=== PATIENT | female | born 1930 | race Caucasian/White ===

== ENCOUNTER 2017-02-26 16:11 | Inpatient (IN) | payer OTHER ==
[~2017-02-26] VITALS: Ht 147.3 cm; Wt 66.9 kg
[2017-02-26] VITALS (7 sets, daily range): BP systolic 71–120; BP diastolic 41–72
--- NOTE | ~2017-02-26 | HC ---
[facility] [place] [address] CONSULTATION Name: MATT STARR Room #: 453-P ADM IN M.R.#: [id number] Admission: 02/26/17 Attend Phys: Cal Scott MD Discharge: Date of : [birth year] Report #: [id number] THIS REPORT FOR: //name// CC: Cal Scott MD DATE OF SERVICE: 02/26/2017 REFERRING PROVIDER: Cal Scott MD REASON FOR CONSULTATION: Critical care assistance with sepsis. CHIEF COMPLAINT: Weakness. HISTORY OF PRESENT ILLNESS: Our group was asked to see the patient in consultation this evening by Dr. Cal Scott. A pleasant 86-year-old woman who had just recently moved to a different assisted living and was found today to be extremely weak and had some blood in the stool of unclear etiology. Because of patient's weakness, she was brought to our Emergency Department and was found to have significant pyuria as well as hypotension, was consistent with urosepsis and subsequently admitted for further management. Chest radiograph had suggested possible right lower lobe infiltrate as well. The patient denies any chest pain or cough or shortness of breath at this time. No significant pulmonary history. Denies any hematochezia. By report rectal exam in the Emergency Department by Emergency Room physician was negative for blood, currently is resting comfortably and somewhat somnolent. Of note, the patient does have a history of sleep apnea, noncompliant with BiPAP. ALLERGIES: INCLUDE SULFA and . PAST MEDICAL HISTORY: 1. Type 2 diabetes mellitus. 2. Hypertension. 3. Gout. 4. History of obstructive sleep apnea. 5. History of spinal stenosis. 6. Chronic venous insufficiency in the lower extremities. 7. Prior CVA. 8. Coronary artery disease. 9. Osteoarthritis. 10. Chronic pain. 11. History of subdural hematoma. CURRENT MEDICATIONS: [facility] [address] [place] [address] CONSULTATION Name: MATT STARR Room #: 453-P [facility] IN [facility].#: [id number] Admission: 02/26/17 Attend Phys: Cal Scott MD Discharge: Date of : [birth year] Report #: [id number] 1. Hydrocodone p.r.n. 2. Bicarbonate drip. 3. CT scan protocol. 4. Norepinephrine. 4. Azithromycin. 5. Ceftriaxone. HOME MEDICATIONS: 1. Allopurinol. 2. Aspirin. 3. Atorvastatin. 4. Carvedilol. 5. Colace. 6. Potassium. 7. Torsemide. 8. Celebrex. SOCIAL HISTORY: The patient is currently living in what sounds like an assisted living environment. 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 FAMILY HISTORY: Noncontributory due to advanced age. REVIEW OF SYSTEMS: CONSTITUTIONAL: Denies any fevers, chills or sweats. ENT: No upper respiratory congestion or rhinorrhea. CARDIOVASCULAR: No chest pains or palpitations. GASTROINTESTINAL: No nausea, vomiting, diarrhea, constipation or abdominal pain. GENITOURINARY: No dysuria, urinary frequency; possible hematuria. INTEGUMENT: Denies any rash. MUSCULOSKELETAL: Chronic osteoarthritic pain and diffuse pains. NEUROLOGIC: History of prior CVA and some generalized weakness and frequent falls. PHYSICAL EXAMINATION: VITAL SIGNS: Afebrile, pulse 60s, respiratory rate 16, blood pressure 107/45, oxygen saturation 93% on 2 liters. GENERAL: This is an elderly woman, does not appear in any distress, pleasant. HEENT: Clear oropharynx, Mallampati 2 airway. NECK: Supple, no lymphadenopathy, no thyromegaly, no stridor. LUNGS: Clear anteriorly. HEART: Regular. No murmurs appreciated. ABDOMEN: Soft, nontender, no masses. BACK: Reveals no CVA tenderness or flank pain. EXTREMITIES: Revealed no significant edema. Pulses are 2+ and warm throughout. [facility] [address] [place] [address] CONSULTATION Name: MATT STARR Room #: 453-P [facility] IN [facility]#: [id number] Admission: 02/26/17 Attend Phys: Cal Scott MD Discharge: Date of : [birth year] Report #: [id number] Extremities are warm throughout. LABORATORY DATA: Urinalysis reveals greater than 25 white blood cells per high power field, no significant hematuria noted. CBC revealed a white blood cell count of 13.5, hemoglobin 10, hematocrit 32, platelet count of 259. Sodium is 144, potassium 4.9, chloride 107, bicarbonate 26, BUN 26, creatinine 1.6, glucose 109. Chest x-ray reveals mild right basilar atelectasis. No significant infiltrates or effusions appreciated. IMPRESSION: 1. Sepsis syndrome, likely due to urosepsis. 2. Blood loss noted at current facility in which she is living, likely hematuria. 3. Probable cystitis. 4. Possible right lower lobe infiltrate/pneumonia. SUGGESTIONS: 1. ICU care. 2. Sepsis management having difficulty getting central venous catheter. We will have to do sepsis management as best we can. The patient appears to have fluid challenge, now on Levophed. Would continue this and follow laboratories. 3. Rocephin and azithromycin. 4. Await cultures, blood and urine. 5. Followup laboratories. 6. Trend lactates. 7. Additional recommendations to follow. Thank you for requesting our suggestions. Total critical care time 40 minutes, not including procedures, discussed with Dr. Scott. By: [id number] Ko Sue MD /nt
--- NOTE | ~2017-02-26 | HC ---
[facility] [place] [address] CONSULTATION Name: MATT STARR Room #: 453-P [facility] IN .R.#: [id number] Admission: 02/26/17 Attend Phys: Cal Scott MD Discharge: Date of : [birth year] Report #: [id number] THIS REPORT FOR: //name// CC: Cal Scott DATE OF SERVICE: 02/28/2017 HISTORY OF PRESENT ILLNESS: The patient is an 86-year-old white female, recently moved into a new assisted living facility had a couple of falls and they noted blood in her toilet water. She was admitted to [facility], noted to be hypotensive. She was diagnosed with septic shock with cystitis. She has a right basilar infiltrate. She was initially treated in the intensive care unit. She has been treated with IV antibiotics and fluids and has been transferred to the medical miramontes. She has chronic right shoulder, hip and knee pain and has had a recent epidurals at [facility]. She also has chronic hypoxia with COPD. Her volume depletion has improved. Creatinine has decreased. We are seeing her now in rehabilitation medicine consultation. PAST MEDICAL HISTORY: Includes the chronic pain disorder which has increased this spring. She has been followed with a Pain Service and has had recent epidural injections as noted. She does have a premorbid sacral pressure ulcer, stage 2. PAST SURGICAL HISTORY: 1. Includes 2 right knee replacements and 1 right hip replacement. 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 She does have severe obstructive sleep apnea, but chronically refuses her BiPAP. She has chronic hypoxemia from COPD; history of diabetes mellitus, type 2; chronic lower extremity swelling, progressive spinal kyphosis. She has history of hyperlipidemia, diabetic neuropathy, B12 deficiency, hypertension, retropulsive tendency when up. MEDICATIONS: Please see the full medication listing. ALLERGIES: Include SULFA and PORK, anabaptism preference. FAMILY HISTORY: Noncontributory. MEDICATIONS: Please see the full medication listing. SOCIAL HISTORY: As noted above, lives in an assisted living facility, did receive some assistance with basic ADLs. She utilized a front-wheeled walker. There are no steps. REVIEW OF SYSTEMS: She has the chronic right-sided back pain. She does not [address] [address] CONSULTATION Name: MATT STARR Room #: 453-P [facility] IN [facility].#: [id number] Admission: 02/26/17 Attend Phys: Cal Scott MD Discharge: Date of : [birth year] Report #: [id number] like lying on her side because of the increased pain, although we are utilizing at least a pillow to try to keep her off her sacral area. A was being utilized in the ICU. No current complaints of chest pain, shortness of breath or abdominal discomfort. Did not offer any complaints of headache or neurologic changes. Notes frustration with her current condition. PHYSICAL EXAMINATION: GENERAL: An 86-year-old white female in no obvious distress. VITAL SIGNS: Last recorded temperature 98.6, pulse 93, respirations 18, blood pressure 141/62. NEUROLOGIC: She is alert, pleasant, follows basic commands. Facies are symmetric. EXTREMITIES: She has functional range of motion of both upper extremities. Strength is grade 4-/5-3+/5. DTRs are trace to 1. Lower extremities, she has some venous stasis changes. She does have 1+ pitting edema. Strength is probably a grade 3+/5 to 4-/5. DTRs are decreased. She has the grade 2 sacral pressure ulcer. She is lying partial on her left side. Functionally, she is min assist with sit to stand and is ambulating 20 feet min assist with a front-wheeled walker. IMPRESSION: An 86-year-old white female with the following problem list: 1. Medical complexity with generalized debilitation. 2. Septic shock. 3. Cystitis. 4. Right basilar infiltrate. 5. Sacral pressure ulcer, stage 2. 6. Right shoulder, hip, and knee pain and has had prior epidurals at [facility]. 7. Severe obstructive sleep apnea, but does not like her BiPAP. 8. Chronic obstructive pulmonary disease. 9. Acute renal insufficiency, superimposed on chronic kidney disease. PLAN: Occupational therapy has actually discharged her from therapy as they have indicated that she is at her baseline for ADLs and that she had assistance at the assisted living facility. She has been ambulating a short distance with the front-wheeled walker. She needs min assist for sit to stand. Case management involved and will need to be in contact with the assisted living facility to see what her premorbid functional was prior to admission. Depending upon this insurance, we will need to be checked regarding rehab therapy options. At this point, we will continue to follow while she continues here at [facility]. By: [id number] Juan M Herrera MD /nt
--- NOTE | ~2017-02-26 | H ---
[facility] [place] [address] HISTORY AND PHYSICAL Name: MATT STARR Room #: 453-P ADM IN M.R.#: [id number] Admission: 02/26/17 Attend Phys: Cal Scott MD Discharge: Date of : [birth year] Report #: [id number] THIS REPORT FOR: //name// CC: Cal Scott DATE OF SERVICE: 02/26/2017 CHIEF COMPLAINT: Weakness, shock, sepsis, acute kidney injury/volume depletion. HISTORY OF PRESENT ILLNESS: This is one of many [facility] admissions for this 86-year-old white female who is in her usual state of health and moved to a brand new residential facility on February 23, at the end of last week. She is pleased with this brand new facility and says "they are following over each other, trying to do whatever you ask of them." She denies a specific change in her medical condition, other than she was feeling more tired and weak. She has spent quite sometime back in her previous independent living apartment and then unpacking her new one. This morning, she fell twice in her new apartment, which she attributes to generalized fatigue. The staff cleaning her apartment noted that there was quite a bit of blood in the toilet water and together with her complaints of weakness, the paramedics were called. The paramedics recorded up blood pressure with the systolic of 70 and brought here to the hospital. Here in the hospital, her blood pressure was 71/33, for the first several hours despite getting IV fluids. Her heart rate was 68, although she felt weak, she did not have confusion or evidence of body organ hypoperfusion. Her white count was elevated at 13,500 and her urinalysis was abnormal with bacteria, white blood cell clumps, blood and nitrites positive. Together with her generalized weakness, these findings all indicated ICU admission for intravenous fluid resuscitation, IV vasp[ressors, as well as IV antibiotics. PAST MEDICAL HISTORY: Most recently significant for chronic pain. She has had 2 right knee replacements and one right hip replacement. There was a fall on her right side at sometime in the distant past. Recently she reports her entire right side is having pain, and is being followed at the [facility] for pain management service where she has also recieved two epidural injections. Her most recent epidural had been on Sunday, 02/12, an epidural injection of the low back. She also has pain in her right shoulder and right hip as well as her right knee. She has fallen and hit her head several times, and did experience a subdural hematoma several years ago. Soon after that, she developed a grand mal seizure, which is controlled on her levetiracetam since then without recurrent seizures. [facility] [address] [place] [address] HISTORY AND PHYSICAL Name: MATT STARR Room #: 453-P [facility] IN M.R.#: [id number] Admission: 02/26/17 Attend Phys: Cal Scott MD Discharge: Date of : [birth year] Report #: [id number] She has a severe obstructive sleep apnea and chronically refuses to use her BiPAP machine. She has had several hospitalizations over the last 5 years that were caused because of problems emanating from her untreated severe sleep apnea, after which she continued to use her CPAP machine once getting home and mental acuity problems cleared after weeks or months clearing out the CO2 accumulation. She has chronic hypoxemia from her COPD, hypertension, type 2 diabetes and chronic swelling in her lower legs treated with elevation as well as chronic diuretics. She was admitted on 06/08/2016 for several days because of difficulty swallowing after having had a large fluid bolus stuck throughout her esophagus. She was found to have grade C esophagitis as well as a benign appearing esophageal stricture, hiatal hernia, gastritis and duodenitis. There was a suggestion of gastroparesis. Her trachea is positioned in such a fashion that makes intubation and airway control very difficult, it is due to her severe cervical arthritis. She has mild chronic kidney disease stage 3 that has been stable, multifactorial edema of her lower extremities, chronic with redness of both lower calf muscle areas. She takes torsemide 20 mg 2-3 tablets daily to control her and maintain her edema at reasonable levels. She did have syncopal episode on 08/18/2015 that manifested with a toxic encephalopathy from CO2 narcosis from her untreated severe sleep apnea. She required a ventilator for several days. She has a progressive spinal kyphosis and please see Dr. Hernandez's dictated note regarding her tracheal intubation 04/17/2015, detailing a successful approach and the challenges from the position change. She has noninsulin dependent diabetes mellitus that is very easy to manage. She had a stroke in recent intracranial hemorrhage from closed head injury. She has history of coronary artery disease and diffuse osteoarthritis. She has history of spinal stenosis, and COPD requiring oxygen supplementation. She has history of hyperlipidemia, diabetic neuropathy, B12 deficiency, ORIF of the left humerus fracture after a fall in February 2013, hypertension, she frequently falls backwards. CURRENT MEDICATIONS: Potassium chloride 10 mEq daily, torsemide 20 mg 2 in the morning, 1 in the evening, pantoprazole 40 mg twice daily, allopurinol, one 300 mg tablet daily, amlodipine 5 mg daily, levetiracetam 500 mg tablets, one half tablet in the morning and one-half in the evening, aspirin 81 mg daily, iron 65 mg daily, stool softener 100 mg, vitamin D, vitamin C and Celebrex 200 mg once daily. [facility] [address] [place] [address] HISTORY AND PHYSICAL Name: MATT STARR Room #: 453-P [facility] IN [facility]#: [id number] Admission: 02/26/17 Attend Phys: Cal Scott MD Discharge: Date of : [birth year] Report #: [id number] SOCIAL HISTORY: She does not drink nor smoke. She recently requested a note "no CPR" from the assisted living facility staff. REVIEW OF SYSTEMS: Unremarkable. HEENT: Unremarkable. The oropharynx shows a small somewhat posterior denture. PHYSICAL EXAMINATION: GENERAL: She is awake, alert and oriented. The oropharynx is unremarkable. She is markedly generalized weak. LUNGS: Clear to auscultation and percussion. CARDIOVASCULAR: Heart tones are normal in rate and rhythm. ABDOMEN: Soft and nontender, without hepatosplenomegaly or masses. She is obese. EXTREMITIES: There is no clubbing or cyanosis. The edema up to the mid upper calf is much less than usual. The chronic redness is present and the skin of her legs and feet is intact. ASSESSMENT: 1. Septic shock. 2. Urinalysis suggests urinary tract infection and possibly a pyelonephritis. 3. HORTENCIA/volume depletion related to increased activity, less water intake, and continuing her torsemide. 4. Seizure disorder. 5. Chronic pain that became more difficult this spring. 6. Sacral decubitus from inactivity. 7. Right basilar pulmonary infiltrate/effusion. She is being seen by Dr. Ko Sue of Critical Care. ICU with vasopressors and ABX for urine and pneumonia. By: [id number] 0150 Cal Scott MD /nt
--- NOTE | ~2017-02-26 | EKG ---
[address] [address] ELECTROCARDIOGRAM REPORT Name: MATT STARR Room #: 453-P ADM IN M.R.#: [id number] Admission: 02/26/17 Attend Phys: Cal Scott MD Discharge: Date of : [birth year] Report #: [id number] THIS REPORT FOR: //name// [facility] ED Test Date: 2017-02-26 Test Time: 16:29:31 Pat Name: MATT STARR Department: Room: [facility] Gender: F Senior Gis Analyst: kerry : 1930 Requested By: Rickie Blanchard Order Number: [id number] MD: Narayan Gibbs Measurements Intervals [place] Rate: 64 P: -1 CA: 180 QRS: -7 QRSD: 88 T: 23 QT: 421 QTc: 435 Interpretive Statements Sinus rhythm Abnormal R-wave progression, late transition LVH by voltage Compared to ECG 06/07/2016 11:46:17 Sinus tachycardia no longer present Electronically Signed On 02-28-2017 9:46:51 CDT by Narayan Gibbs [email or web address] <ELECTRONICALLY SIGNED> By: Narayan Gibbs MD 02/28/17 0946 1629 1629 Narayan Gibbs MD /EPI
[~2017-02-26 16:11] MED LIST: ALBUTEROL2.5 MG/0.5 INH; ALLOPURINOL 10100 M1; ALLOPURINOL 30300 M2 PO; AMLODIPINE BESYL5 M1 PO; AMLODIPINE BESYL5 MG PO; ASPIR 8181 MG PO; ASPIRIN EC81 M1 PO; ATORVASTATIN CA40 MG PO; B-121000 MCG PO; B-12500 MCG PO; CARVEDILOL12.5 MG PO; CIPRO250 M1 PO; CIPROFLOXACIN500 M1 PO; CLONIDINE HCL0.3 M2 PO; COLACE100 MG PO; DEMADEX20 MG PO; DIGOXIN125 MCG PO; DUONEB 2.5-0.5 M3 ML; ENOXAPARIN40 MG/0.1 SUBQ; FISH OIL 1,0001 EAC5 PO; GLIPIZIDE ER2.5 MG PO; GLUCOTROL XL2.5 MG PO; GLUCOTROL5 MG PO; HYDROCODON-ACE1 EAC7 PO; IPRAT-ALBUT 0.5-3 ML INH; IRON325 PO; KEPPRA 500 MG500 M1 PO; KLOR-CON 10 ER10 MEQ PO; KLOR-CON 1010 MEQ PO; LANOXIN 0.120.125 M2 PO; LASIX 40 MG TAB40 M1 PO; LORTAB; MOBIC7.5 M1 PO; MOBIC7.5 MG PO; MULTIVITAMINS PO; NEURONTIN 300300 M1 PO; NEURONTIN600 MG PO; NORVASC5 MG PO; PEG3350510 GM PO; PLAVIX 75 MG TA75 M1 PO; PLAVIX 75 MG TA75 MG PO; PRAVACHOL80 MG PO; PREDNISONE 10 M10 MG PO; PROVIGIL 100 M100 MG PO; SIMVASTATIN80 MG PO; SOLU-MEDRO40 MG/1 M2 IV; TYLENOL325 MG PO; UNICOMPLEX M TA1 TA1 PO; VITAMIN D 5050000 I1 PO; VITAMIN D35000 UNIT PO; VITAMIN D350000 UNIT PO; VITAMINC500 PO; ZINC CHELATE50 MG PO
[2017-02-26 16:58] LABS: URINE BILIRUBIN NEGATIVE (Negative); URINE BLOOD TRACE (Negative); URINE COLOR YELLOW; URINE GLUCOSE-RANDOM* NEGATIVE (Negative); URINE KETONES NEGATIVE (Negative); URINE LEUKOCYTES-REFLEX 2+ (Negative); URINE PROTEIN (DIPSTICK) 1+ (Negative); URINE UROBILINOGEN 0.2 E.U./dl (0.2-1.0)
[2017-02-26 17:10] LABS: SQUAMOUS 0-3 Few /LPF (0-3); URINE WBC-REFLEX >25 Many /HPF (0-5)
[2017-02-26 17:11] LABS: CRYSTALS None Seen /LPF (None Seen); URINE RBC 0-2 Rare /HPF (0-2); WBC CLUMPS Moderate (None Seen)
[2017-02-26 17:12] LABS: CASTS None Seen /LPF (None Seen)
[2017-02-26 17:13] LABS: PROTIME 10.7 Seconds (9.3-11.4)
[2017-02-26 18:46] LABS: ABSOLUTE NEUTROPHILS 10.9 thou/uL (1.4-8.2); BASOPHILS 0.2 % (0.0-2.0); EOSINOPHILS 0.4 % (0.0-3.0); HEMATOCRIT 31.9 % (37.0-47.0); HEMOGLOBIN 10.3 gm/dL (12.0-15.0); LYMPHOCYTES 10.6 % (24.0-44.0); MCH 30.1 pg (26.0-34.0); MCHC 32.3 g/dL (28.0-37.0); MCV 93.1 fL (80.0-100.0); MONOCYTES 8.4 % (1.0-8.0); PLATELET COUNT 259 thou/uL (150-400); POLYS 80.4 % (36.0-66.0); RBC 3.43 mil/uL (4.20-5.00); RDW 16.5 % (10.5-14.5); WBC 13.5 thou/uL (4.0-11.0)
[2017-02-26 18:47] LABS: MANUAL DIFF NO
[2017-02-26 18:50] LABS: CALCIUM 9.4 mg/dL (8.5-10.1); CREATININE 1.6 mg/dL (0.6-1.0); POTASSIUM 4.9 mmol/L (3.5-5.1)
[2017-02-26] MEDS ORDERED: AMLODIPINE BESYL5 M1 (21:52)
[2017-02-26] MEDS ORDERED: KEPPRA 500 MG500 M1 PO (21:56)
[2017-02-26] MEDS ORDERED: MOBIC7.5 MG (21:57)
[2017-02-26] MEDS ORDERED: CYMBALTA30 MG (21:59)
[2017-02-26] MEDS ORDERED: TORSEMIDE20 MG (22:02)
[2017-02-26] MEDS ORDERED: IRON325 PO (22:05)
[2017-02-26] MEDS ORDERED: TRAMADOL 50 MG50 MG (22:10)
[2017-02-26] MEDS ORDERED: PROTONIX40 M1 PO (22:12)
[2017-02-26] MEDS ORDERED: HYDROCODON-ACE1 EAC7 (22:13)
[2017-02-26] MEDS ORDERED: LIDOCAINE-PRIL1 EACH (22:15)
[2017-02-27] VITALS (20 sets, daily range): BP systolic 89–138; BP diastolic 47–80
[2017-02-27 05:26] LABS: ABSOLUTE NEUTROPHILS 10.6 thou/uL (1.4-8.2); BASOPHILS 0.2 % (0.0-2.0); EOSINOPHILS 0.8 % (0.0-3.0); HEMATOCRIT 31.1 % (37.0-47.0); LYMPHOCYTES 10.8 % (24.0-44.0); MCH 30.5 pg (26.0-34.0); MCHC 32.2 g/dL (28.0-37.0); MCV 94.6 fL (80.0-100.0); MONOCYTES 8.7 % (1.0-8.0); PLATELET COUNT 227 thou/uL (150-400); POLYS 79.5 % (36.0-66.0); RBC 3.29 mil/uL (4.20-5.00); RDW 17.1 % (10.5-14.5); WBC 13.3 thou/uL (4.0-11.0)
[2017-02-27 05:42] LABS: ALBUMIN 2.3 g/dL (3.4-5.0); CALCIUM 8.7 mg/dL (8.5-10.1); CREATININE 1.1 mg/dL (0.6-1.0); POTASSIUM 4.4 mmol/L (3.5-5.1); TOTAL BILIRUBIN 0.3 mg/dL (<0.1-1.0); TOTAL PROTEIN 5.9 g/dL (6.4-8.2)
[2017-02-27 05:44] LABS: MANUAL DIFF NO
[2017-02-28 04:36] VITALS: BP 110/62
[2017-02-28 07:29] VITALS: BP 126/54
[2017-02-28 08:51] LABS: HEMATOCRIT 30.4 % (37.0-47.0); HEMOGLOBIN 9.9 gm/dL (12.0-15.0); MCH 30.7 pg (26.0-34.0); MCHC 32.7 g/dL (28.0-37.0); RBC 3.24 mil/uL (4.20-5.00); RDW 16.7 % (10.5-14.5); WBC 10.1 thou/uL (4.0-11.0)
[2017-02-28 08:57] LABS: CALCIUM 8.9 mg/dL (8.5-10.1); POTASSIUM 4.5 mmol/L (3.5-5.1)
[2017-02-28 11:09] VITALS: BP 128/57
[2017-02-28 14:58] VITALS: BP 141/62
[2017-02-28 19:38] VITALS: BP 156/84
[2017-03-01 03:38] VITALS: BP 156/67
[2017-03-01 08:36] VITALS: BP 141/90
[2017-03-01 12:33] VITALS: BP 138/61
[2017-03-01 16:00] VITALS: BP 140/72
[2017-03-01 19:47] VITALS: BP 155/78
[2017-03-02 03:45] VITALS: BP 152/78
[2017-03-02 06:18] LABS: HEMATOCRIT 30.7 % (37.0-47.0); HEMOGLOBIN 10.1 gm/dL (12.0-15.0); MCH 30.9 pg (26.0-34.0); MCV 93.5 fL (80.0-100.0); RBC 3.29 mil/uL (4.20-5.00); RDW 16.8 % (10.5-14.5)
[2017-03-02 06:26] LABS: ALBUMIN 2.5 g/dL (3.4-5.0); CALCIUM 9.4 mg/dL (8.5-10.1); CREATININE 0.9 mg/dL (0.6-1.0); POTASSIUM 4.2 mmol/L (3.5-5.1); TOTAL BILIRUBIN 0.3 mg/dL (<0.1-1.0); TOTAL PROTEIN 5.9 g/dL (6.4-8.2); URIC ACID* 2.7 mg/dL (2.6-7.2)
[2017-03-02 07:23] VITALS: BP 160/79
[2017-03-02 12:02] VITALS: BP 136/65
[2017-03-02] MEDS ORDERED: PERCOCET PO (13:31)
[2017-03-02] MEDS ORDERED: OXYGEN MISCELL (13:37)
[2017-03-02] MEDS ORDERED: CEFTRIAXON1 GM/50 ML IV (13:37)
[2017-03-02] MEDS ORDERED: DEMADEX20 MG PO (13:37)
[2017-03-02 15:49] VITALS: BP 166/82
[2017-03-02] MEDS ORDERED: NF TOP (16:20)
[2017-03-02] MEDS ORDERED: CELEBREX 200 M200 M1 PO (16:20)
[2017-03-02 20:37] VITALS: BP 160/59
[2017-03-03] VITALS: BP 143/79
[2017-03-03 04:40] VITALS: BP 150/76
[2017-03-03 07:44] VITALS: BP 121/54
[2017-03-03] MEDS ORDERED: ATORVASTATIN CA40 MG PO (10:47)
[2017-03-03 11:32] VITALS: BP 121/54
[2017-03-03 11:49] VITALS: BP 153/88
== END 2017-03-03 15:11 | DRG 871 ==
LOC: ER 16:11 → 4W 18:01 → ICU 18:01 → EROBS 18:01 → ICU 19:27 → 4W 02-27 19:59
PROVIDERS: Emergency Medicine; Internal Medicine
PROC: 02HV33Z Insertion of Infusion Device into Superior Vena Cava, Percutaneous Approach (ICD-10-PCS; principal; 2017-02-26)
PROC: 02PYX3Z Removal of Infusion Device from Great Vessel, External Approach (ICD-10-PCS; 2017-03-03)
DX: A41.9 Sepsis, unspecified organism (principal); J18.9 Pneumonia, unspecified organism; R65.21 Severe sepsis with septic shock; J96.21 Acute and chronic respiratory failure with hypoxia; N17.9 Acute kidney failure, unspecified; L89.152 Pressure ulcer of sacral region, stage 2; I25.10 Atherosclerotic heart disease of native coronary artery without angina pectoris; M10.9 Gout, unspecified; J44.9 Chronic obstructive pulmonary disease, unspecified; E78.5 Hyperlipidemia, unspecified; E11.40 Type 2 diabetes mellitus with diabetic neuropathy, unspecified; Z96.651 Presence of right artificial knee joint; E53.8 Deficiency of other specified B group vitamins; G89.29 Other chronic pain; Z96.641 Presence of right artificial hip joint; G47.33 Obstructive sleep apnea (adult) (pediatric); R53.81 Other malaise; E11.22 Type 2 diabetes mellitus with diabetic chronic kidney disease; N18.9 Chronic kidney disease, unspecified; I12.9 Hypertensive chronic kidney disease with stage 1 through stage 4 chronic kidney disease, or unspecified chronic kidney disease; G40.909 Epilepsy, unspecified, not intractable, without status epilepticus; N30.90 Cystitis, unspecified without hematuria; E86.9 Volume depletion, unspecified; Z87.81 Personal history of (healed) traumatic fracture; Z88.2 Allergy status to sulfonamides; Z86.73 Personal history of transient ischemic attack (TIA), and cerebral infarction without residual deficits; Z91.018 Allergy to other foods; Z91.19 Patient's noncompliance with other medical treatment and regimen; B96.20 Unspecified Escherichia coli [E. coli] as the cause of diseases classified elsewhere
CPT/HCPCS: 10045; 10078; 27000

== ENCOUNTER 2017-03-17 11:15 | Inpatient (IN) | payer OTHER ==
[~2017-03-17] VITALS: Ht 139.7 cm; Wt 63.6 kg
--- NOTE | ~2017-03-17 | HC ---
[facility] [place] [address] CONSULTATION Name: MATT STARR Cam Room #: 446-P ADM IN M.R.#: [id number] Admission: 03/17/17 Attend Phys: Cal Scott MD Discharge: Date of : [birth year] Report #: [id number] THIS REPORT FOR: //name// CC: Cal Scott DATE OF SERVICE: 03/20/2017 HISTORY OF PRESENT ILLNESS: The patient is an 86-year-old white female previously known to me who had recently removed into an assisted living facility at the beginning of this month. She had an episode of septic shock with cystitis and right basilar infiltrate as well as the development of sacral pressure ulcer stage 2 during a prior acute hospitalization from 02/26/2017 through 03/03/2017 at [facility]. She was discharged to a nursing home facility for a short period of time. She apparently did not feel the care was very good at the nursing home facility and she was discharged back to her own assisted living facility. After admission to her assisted living facility, she initially was doing pretty well, but then she had worsening pain involving her right side, especially lower extremities and was having more and more problems with functional mobility. She was brought back in to [facility] and was diagnosed with bilateral lower extremity cellulitis. She has the sacral ulcer as well. She has been placed on IV antibiotics. She had leukocytosis with improvement. She notes her pain is improved now with treating the cellulitis. She is desiring to get more therapy to try to achieve a higher functional level for when she returns back to her assisted living facility. Her Celebrex has also been increased and she has tramadol and Lidoderm. PAST MEDICAL HISTORY: Includes a chronic pain disorder premorbidly. She has been followed with the Pain Center and has had prior epidural steroid injections. PAST SURGICAL HISTORY: Includes 2 right total knee replacements and 1 right hip replacement. She has had a prior subdural hematoma and developed grand mal seizures and has been on anti-seizure medication. She has a history of severe obstructive sleep apnea but chronically refuses her BiPAP. She has chronic hypoxemia from COPD and indicates she has been on O2 at home 2 L. History of diabetes mellitus type 2, chronic lower extremity swelling, progressive spinal kyphosis. She has a history of hyperlipidemia, diabetic neuropathy, B12 deficiency, hypertension. MEDICATIONS: Please see the full medication listing. ALLERGIES: Include SULFA and PORK, scientologist preference. FAMILY HISTORY: Noncontributory. [facility] [address] [place] [address] CONSULTATION Name: MATT STARR Room #: 446-P [facility] IN [facility]#: [id number] Admission: 03/17/17 Attend Phys: Cal Scott MD Discharge: Date of : [birth year] Report #: [id number] SOCIAL HISTORY: Lives in the assisted living facility. Did receive some assistance with basic ADLs. She utilized a front-wheeled walker. There are no steps. She was able to ambulate down to the dining area. REVIEW OF SYSTEMS: She notes the right-sided back pain is improving. The leg pain is improving. Did not offer any current complaints of chest pain, shortness of breath or abdominal discomfort. PHYSICAL EXAMINATION: She is an 86-year-old white female in no obvious distress. Last recorded temperature is 97.5, pulse 67, respirations 18, blood pressure is 135/58. The patient is alert, pleasant. HEENT appeared to be benign. Cranial nerves are grossly intact. Facies are symmetric. She is a good historian. She has functional range of motion of both upper extremities, strength is grade 4-/5. DTRs are trace to 1. In her lower extremities, she has some residual erythema over her lower extremities distally. There might be some early venous stasis changes. She was able to tolerate lower extremity strength testing with some discomfort. Appeared to be a grade 3+ to 4-/5. DTRs are decreased. Tone appeared intact. She does have some decreased distal sensation in a stocking distribution consistent with her peripheral neuropathy. She was mod assist with sit to stand. She was on 3 liters nasal prong O2. Gait was 86 feet min assist with a front-wheeled walker. ASSESSMENT: An 86-year-old white female with the following problem list: 1. Medical complexity with generalized debilitation. 2. Bilateral lower extremity cellulitis. 3. Leukocytosis, which has improved. 4. Intractable right-sided pain. She is on Celebrex, which was increased to b.i.d., has p.r.n. oxycodone, also has tramadol and Lidoderm available. 5. Sacral ulcer, stage 1-2. 6. Premorbid chronic pain disorder. 7. History of chronic obstructive pulmonary disease, O2 dependent. 8. Prior total joint replacements as noted above. 9. History of diabetes mellitus with peripheral neuropathy. 10. Stage 3 chronic kidney disease. 11. Spinal stenosis. 12. Severe cervical osteoarthritis. PLAN: The patient is very motivated to try to improve her functional mobility and ADLs and strength to the point where she can return back successfully to her assisted living facility. She is desiring to come up to the acute [address] [place] [address] inpatient rehab [facility]es. I indicated that therapies are to complete their [facility] [address] [place] [address] CONSULTATION Name: MATT STARR Room #: 446-P ADM IN .R.#: [id number] Admission: 03/17/17 Attend Phys: Cal Scott MD Discharge: Date of : [birth year] Report #: [id number] evaluations and we will assess further. Insurance will then need to be precertified. We will be glad to assist and will follow along with you. By: [id number] [id number] Juan M Herrera MD /nt
--- NOTE | ~2017-03-17 | HC ---
[facility] [place] [address] CONSULTATION Name: MATT STARR Room #: 446-P [facility]#: [id number] Admission: 03/17/17 Attend Phys: Cal Scott MD Discharge: 03/22/17 Date of : [birth year] Report #: [id number] THIS REPORT FOR: //name// CC: Cal Scott DATE OF SERVICE: 03/20/2017 REASON FOR CONSULTATION: Sacral pressure sore. HISTORY OF PRESENT ILLNESS: The patient is a very pleasant 86-year-old woman with a high degree of immobility, has a history of noninsulin dependent diabetes mellitus, cerebrovascular accident x 2 and history of diabetic neuropathy, who was admitted to the [facility] Emergency Room after a recent retirement rehabilitation stay due to increasing pain in her right hip and knee. The patient was complaining of a newly developed pressure sore, which she got at home over the sacral area, which was painful. The patient has a history of multiple falls and has been quite immobile. She wishes to sit up in a chair most of the time. She has some redness of both legs, but no pain in the lower legs. She says that the redness in her legs is nothing new. PAST MEDICAL HISTORY: Noninsulin dependent diabetes mellitus, coronary artery disease, osteoarthritis, cerebrovascular accident x 2, venous insufficiency of lower extremities, COPD, diabetic neuropathy, history of frequent falls. PAST SURGICAL HISTORY: Right knee replacement in 2002 and 2012, open reduction and internal fixation of left humerus after a fall 2013. MEDICATIONS: Allopurinol, aspirin, potassium chloride, lactobacillus, Colace, MiraLax, vitamin C, Keppra, Cymbalta, iron and Ultram. REVIEW OF SYSTEMS: The patient is quite immobile. She wish to sit in a chair most of the day. PHYSICAL EXAMINATION: GENERAL: Shows an alert, conversant, elderly woman. She complains of some pain in her sacral area, but no pain in her legs. HEENT: Mucous membranes are moist. NECK: Supple. CARDIOVASCULAR: Heart sounds, regular rate and rhythm. LUNGS: Clear. ABDOMEN: Soft. EXTREMITIES: Shows a small abrasion of her right pretibial area. There is some chronic redness and flaky skin of both lower legs down to the ankle, which is nontender. Examination of the sacral area shows two small open stage II sacral pressure sores, one on the right, one on the left, largest 1 square cm in size. This is surrounded by some slightly reddish [place] [address] CONSULTATION Name: MATT STARR Room #: 446-P [facility]#: [id number] Admission: 03/17/17 Attend Phys: Cal Scott MD Discharge: 03/22/17 Date of : [birth year] Report #: [id number] pressure. We classified this as stage II pressure ulcer. ASSESSMENT: 1. Immobility. 2. Diabetes mellitus type 2 with sacral stage II skin ulcer. 3. Status post cerebrovascular accident. 4. History of diabetic neuropathy. 5. Chronic venous insufficiency of lower extremities. 6. Abrasion of the right pretibial area. 7. Sacral stage 2 pressure sore bilaterally. PLAN: Order morphine and Silvadene compound, apply three times a day to the sacral ulcer covered with a Sacral Mepilex. Morphine and Silvadene to the abrasion of the right pretibial area. Order the patient a low air loss mattress. She finds her present bed uncomfortable, wishes to sit in a chair, low air loss mattress to offload her sacral area. Order skin moisturizer for the skin of her lower legs. Note this patient has leukocytosis, white blood count 17,000. I do not believe that her sacral wound of her legs would be the source of this leukocytosis. Wound care team will follow. <ELECTRONICALLY SIGNED> By: Tomas Burns MD 03/25/17 1006 [id number] 1807 Tomas Burns MD /nt
--- NOTE | ~2017-03-17 | HC ---
[facility] [place] [address] CONSULTATION Name: MATT STARR Room #: 446-P ADM IN M.R.#: [id number] Admission: 03/17/17 Attend Phys: Cal Scott MD Discharge: Date of : [birth year] Report #: [id number] THIS REPORT FOR: //name// CC: Cal Scott CHIEF COMPLAINT: Right leg and knee pain. HISTORY OF PRESENT ILLNESS: The patient is a pleasant 86-year-old female who was admitted to [facility] on 03/17/2017, due to increasing pain in her right lower back, hip and pain in the knee. The patient reports that she has been having pain in the low back/buttock region and thigh for quite some time now and recently has developed pain in the right knee. The patient reports that she has been seeing someone at [facility] in regards to her thigh and hip pain, they have told her that this is coming from her low back, from arthritis in this area. She has received 2 prior injections in the low back, which she reports did not provide any relief of her entire hip pain. Over the last couple of days to a week, she has noticed increasing pain in the right knee. She denies any known injury to it, but does report that at the beginning of February, she did have a fall and thinks that she may have fallen on the right leg at this time; however, she does not remember exactly how she fell. She locates the pain to the medial aspect of the right knee, the anterior thigh. The patient has had a prior right total knee arthroplasty with revision procedure done about 9 years ago. She also reports a prior right total hip arthroplasty, which was performed by Dr. Mendoza at [facility] about 3 years ago. The knee replacement surgeries were done while she was living in [place]. ALLERGIES: PORK DERIVED. MEDICATIONS: Please see medical record, but include oxycodone and Celebrex. PAST MEDICAL HISTORY: Noninsulin dependent diabetes mellitus; coronary artery disease; osteoarthritis; CVA times 2; venous insufficiency; spinal stenosis; sleep apnea for which the patient refuses to use BiPAP, COPD, she is on 2 liters of oxygen per nasal cannula; gout; dyslipidemia; diabetic neuropathy; B12 deficiency; hypertension; subdural hematoma in 2014; history of respiratory failure in 2014; frequent falls backwards. PAST SURGICAL HISTORY: Significant for right knee replacement in 2002 with revision in 2012, ORIF of left humerus fracture in 2012, right total hip arthroplasty approximately 3 years ago. SOCIAL HISTORY: The patient reports that she lives in an assisted living facility. She denies any drug or alcohol use. PHYSICAL EXAMINATION: GENERAL: Awake, alert and oriented, on oxygen per nasal cannula. VITAL SIGNS: Temperature 36.4 degrees Celsius, blood pressure 160/68, [place] 72[place] [address] CONSULTATION Name: MATT STARR Room #: 446-P [facility]#: [id number] Admission: 03/17/17 Attend Phys: Cal Scott MD Discharge: Date of : [birth year]/25/[birth year] Report #: [id number] EXTREMITIES: Right lower extremity is neurovascularly intact, with venous stasis type changes/cellulitis of the lower leg. Healed incisions noted over the right knee and right lateral hip. Right knee is non-swollen, normal temperature, well-healed incision, range of motion from 5-100, quad strength is normal. Tenderness to palpation of the medial aspect of the knee including medial joint line, medial epicondyle and medial tibial plateau. HIP: No pain with range of motion of the right hip. Forward flexion to 90 degrees, internal rotation 15, external rotation 10. LABORATORY DATA: White blood cell count 9.6, hemoglobin 9.3, ESR is elevated at 43, and blood glucose 72. IMAGING STUDIES: Three views of the bilateral knees show no acute osseous abnormality. Extensive degenerative changes within the left knee with right total knee arthroplasty in good position with no signs of loosening. Pelvis CT scan shows right total hip arthroplasty with no signs of loosening, soft tissue inflammatory mass or abscess. CT does show sacral decubitus wound without evidence of abscess or inflammatory mass. No radiographic evidence of osteomyelitis of the ischial tuberosities. IMPRESSION: Right leg and knee pain with history of right total hip, right total knee replacement times 2 and lumbar spinal stenosis, lumbar radiculopathy. PLAN: We discussed that the patient's x-ray findings of the knee and hip show no evidence of loosening or infection. We discussed that some of her medial sided knee pain should be a contusion from her prior falls. With no evidence of acute process in either of the hip or the knee, our recommendation at this point would be to continue with pain medications for the patient and continue with PT/OT as tolerated, Upon discharge from the hospital, we would recommend her following up with her total hip arthroplasty surgeon, Dr. Mendoza and the physician that she has been seeing for her lumbar spine for further followup of the lumbar radiculopathy. Please feel free to contact us with any additional questions or concerns. By: [id number] CHARLOTTE Crowley /jana
[~2017-03-17 11:15] MED LIST changes: +AMLODIPINE BESYL5 M1; +CEFTRIAXON1 GM/50 ML IV; +CELEBREX 200 M200 M1 PO; +CYMBALTA30 MG; +HYDROCODON-ACE1 EAC7; +LIDOCAINE-PRIL1 EACH; +MOBIC7.5 MG; +NF TOP; +OXYGEN MISCELL; +PERCOCET PO; +PROTONIX40 M1 PO; +TORSEMIDE20 MG; +TRAMADOL 50 MG50 MG
[2017-03-17 11:17] VITALS: BP 167/84
[2017-03-17 12:07] LABS: HEMATOCRIT 31.7 % (37.0-47.0); HEMOGLOBIN 10.3 gm/dL (12.0-15.0); MCH 30.8 pg (26.0-34.0); MCHC 32.6 g/dL (28.0-37.0); MCV 94.4 fL (80.0-100.0); PLATELET COUNT 310 thou/uL (150-400); RBC 3.36 mil/uL (4.20-5.00); RDW 16.3 % (10.5-14.5); WBC 17.1 thou/uL (4.0-11.0)
[2017-03-17 12:10] LABS: MANUAL DIFF YES
[2017-03-17 12:24] LABS: ABSOLUTE NEUTROPHILS 14.7 thou/uL (1.4-8.2); ANISOCYTOSIS 2+; TOTAL CELL COUNT 100
[2017-03-17 12:25] LABS: POIKILOCYTOSIS SLIGHT; POLYCHROMASIA OCCASIONAL
[2017-03-17 13:40] LABS: URINE BILIRUBIN NEGATIVE (Negative); URINE BLOOD NEGATIVE (Negative); URINE COLOR YELLOW; URINE GLUCOSE-RANDOM* NEGATIVE (Negative); URINE KETONES NEGATIVE (Negative); URINE NITRITE NEGATIVE (Negative); URINE PROTEIN (DIPSTICK) NEGATIVE (Negative); URINE SPECIFIC GRAVITY <= 1.005 (1.003-1.035); URINE UROBILINOGEN 0.2 E.U./dl (0.2-1.0)
[2017-03-17 13:46] LABS: BACTERIA 1-9 Few /HPF (None Seen); CASTS None Seen /LPF (None Seen); CRYSTALS None Seen /LPF (None Seen); SQUAMOUS 4-10 Moderate /LPF (0-3); URINE RBC None Seen /HPF (0-2); URINE WBC 0-5 Rare /HPF (0-5)
[2017-03-17 13:51] LABS: CALCIUM 9.8 mg/dL (8.5-10.1); CREATININE 1.2 mg/dL (0.6-1.0); POTASSIUM 4.6 mmol/L (3.5-5.1)
[2017-03-17] MEDS ORDERED: PROBIOTIC1 EAC1 PO (14:37)
[2017-03-17] MEDS ORDERED: MIRALAX17 GM PO (14:39)
[2017-03-17] MEDS ORDERED: COLACE100 MG PO (14:39)
[2017-03-17] MEDS ORDERED: VITAMINC500 PO (14:40)
[2017-03-17 15:17] VITALS: BP 157/77
[2017-03-17 15:28] VITALS: BP 150/71
[2017-03-17 20:06] VITALS: BP 120/55
[2017-03-18 05:00] VITALS: BP 119/70
[2017-03-18 05:41] LABS: ABSOLUTE NEUTROPHILS 6.8 thou/uL (1.4-8.2); BASOPHILS 0.4 % (0.0-2.0); EOSINOPHILS 2.1 % (0.0-3.0); HEMATOCRIT 29.7 % (37.0-47.0); HEMOGLOBIN 9.5 gm/dL (12.0-15.0); LYMPHOCYTES 15.5 % (24.0-44.0); MCH 30.7 pg (26.0-34.0); MCHC 32.1 g/dL (28.0-37.0); MCV 95.7 fL (80.0-100.0); MONOCYTES 6.4 % (1.0-8.0); PLATELET COUNT 249 thou/uL (150-400); POLYS 75.6 % (36.0-66.0); RDW 16.1 % (10.5-14.5)
[2017-03-18 05:43] LABS: MANUAL DIFF NO
[2017-03-18 05:56] LABS: ALBUMIN 2.4 g/dL (3.4-5.0); ALKALINE PHOSPHATASE 80 U/L (46-116); ANION GAP 5 mmol/L (7-16); BUN 28 mg/dL (7-18); CALCIUM 9.4 mg/dL (8.5-10.1); CHLORIDE 110 mmol/L (98-107); CO2 32 mmol/L (21-32); CREATININE 1.1 mg/dL (0.6-1.0); DIRECT BILIRUBIN < 0.1 mg/dL (<0.1-0.3); GLUCOSE 102 mg/dL (74-106); POTASSIUM 4.5 mmol/L (3.5-5.1); SGOT 11 U/L (15-37); SGPT 8 U/L (30-65); SODIUM 147 mmol/L (136-145); TOTAL BILIRUBIN 0.3 mg/dL (<0.1-1.0); TOTAL PROTEIN 5.8 g/dL (6.4-8.2)
[2017-03-18 09:04] VITALS: BP 161/87
[2017-03-18 16:22] VITALS: BP 118/61
[2017-03-18 19:09] VITALS: BP 113/50
[2017-03-19 04:37] VITALS: BP 131/62
[2017-03-19 08:08] VITALS: BP 161/72
[2017-03-19 15:56] VITALS: BP 115/53
[2017-03-19 19:12] VITALS: BP 116/53
[2017-03-20 04:42] VITALS: BP 134/65
[2017-03-20 04:50] LABS: HEMATOCRIT 28.4 % (37.0-47.0); HEMOGLOBIN 9.3 gm/dL (12.0-15.0); MCH 30.9 pg (26.0-34.0); MCHC 32.9 g/dL (28.0-37.0); RBC 3.02 mil/uL (4.20-5.00); RDW 16.4 % (10.5-14.5); WBC 9.6 thou/uL (4.0-11.0)
[2017-03-20 05:07] LABS: CALCIUM 9.3 mg/dL (8.5-10.1); CREATININE 1.1 mg/dL (0.6-1.0); POTASSIUM 4.4 mmol/L (3.5-5.1)
[2017-03-20 08:33] VITALS: BP 135/58
[2017-03-20 16:20] VITALS: BP 155/73
[2017-03-20 20:34] VITALS: BP 127/62
[2017-03-21 04:33] VITALS: BP 131/64
[2017-03-21 08:29] VITALS: BP 160/68
[2017-03-21 16:43] VITALS: BP 111/55
[2017-03-21 20:00] VITALS: BP 118/55
[2017-03-22 05:56] VITALS: BP 147/61
[2017-03-22 09:13] VITALS: BP 108/46
[2017-03-22] MEDS ORDERED: CEPHALEXIN 500500 M3 PO (14:24)
[2017-03-22] MEDS ORDERED: CELEBREX 200 M200 M1 PO (14:24)
[2017-03-22] MEDS ORDERED: GABAPENTIN 100100 MG PO (14:34)
[2017-03-22] MEDS ORDERED: Hydrocerin Cream 4 O TOP (14:34)
[2017-03-22] MEDS ORDERED: LIDODERM 5%1 PATCH TRANSDERM (14:34)
[2017-03-22] MEDS ORDERED: SENOKOT-S1 TA1 PO (14:34)
[2017-03-22] MEDS ORDERED: MORPHINE 11 MG/2 ML TOP (14:43)
[2017-03-22] MEDS ORDERED: TORSEMIDE20 MG PO (15:25)
== END 2017-03-22 16:09 | DRG 602 ==
LOC: ER 11:15 → EROBS 14:21 → 4S 14:21
PROVIDERS: Internal Medicine; Physician Assistant
DX: L03.115 Cellulitis of right lower limb (principal); E43 Unspecified severe protein-calorie malnutrition; L89.152 Pressure ulcer of sacral region, stage 2; I25.10 Atherosclerotic heart disease of native coronary artery without angina pectoris; M19.90 Unspecified osteoarthritis, unspecified site; M10.9 Gout, unspecified; J44.9 Chronic obstructive pulmonary disease, unspecified; E78.5 Hyperlipidemia, unspecified; E53.8 Deficiency of other specified B group vitamins; Z96.651 Presence of right artificial knee joint; G89.29 Other chronic pain; L03.116 Cellulitis of left lower limb; Z96.641 Presence of right artificial hip joint; E11.42 Type 2 diabetes mellitus with diabetic polyneuropathy; M48.00 Spinal stenosis, site unspecified; M47.812 Spondylosis without myelopathy or radiculopathy, cervical region; N18.3 Chronic kidney disease, stage 3 (moderate); I12.9 Hypertensive chronic kidney disease with stage 1 through stage 4 chronic kidney disease, or unspecified chronic kidney disease; S80.811A Abrasion, right lower leg, initial encounter; I87.2 Venous insufficiency (chronic) (peripheral); X58.XXXA Exposure to other specified factors, initial encounter; M54.16 Radiculopathy, lumbar region; K21.0 Gastro-esophageal reflux disease with esophagitis; G47.33 Obstructive sleep apnea (adult) (pediatric); D72.829 Elevated white blood cell count, unspecified; K59.00 Constipation, unspecified; Y93.89 Activity, other specified; Y92.89 Other specified places as the place of occurrence of the external cause; Z79.899 Other long term (current) drug therapy; Z91.018 Allergy to other foods; Z68.32 Body mass index [BMI] 32.0-32.9, adult; Z86.73 Personal history of transient ischemic attack (TIA), and cerebral infarction without residual deficits; Y99.8 Other external cause status; Z87.81 Personal history of (healed) traumatic fracture
CPT/HCPCS: 10195

== ENCOUNTER 2017-04-16 10:30 | Inpatient (IN) | payer OTHER ==
[~2017-04-16] VITALS: Ht 144.8 cm; Wt 62.6 kg
--- NOTE | ~2017-04-16 | HC ---
[facility] [place] [address] CONSULTATION Name: MATT STARR Room #: 311-P ADM IN .R.#: [id number] Admission: 04/16/17 Attend Phys: Cal Scott MD Discharge: Date of : [birth year] Report #: [id number] THIS REPORT FOR: //name// CC: Cal Scott DATE OF SERVICE: 04/16/2017 DATE OF SERVICE: 04/16/2017. REASON FOR CONSULTATION: Right infiltrate and effusion. IMPRESSION: 1. Right infiltrate/effusion, probable atelectasis and slight volume overload. 2. History of falls. 3. Possible cystitis. 4. History of obstructive sleep apnea. 5. Anemia, normocytic. PLAN: Would keep on the dry side, would not actively pursue effusion as she relates this has not been bothering her. Would do followup chest x-ray for clearing. HISTORY OF PRESENT ILLNESS: An 86-year-old female who has fallen several times, now comes in with right hip pain after sliding off the toilet. She denies progressive shortness of breath, chest pain or palpitations. No fever, chills or night sweats. No nausea or vomiting. MEDICATIONS: Include torsemide, oxygen, ferrous sulfate, Cymbalta, Keppra, Norvasc, aspirin, Zyloprim. PAST MEDICAL HISTORY: Includes type 2 diabetes mellitus, hypertension, gout, CARLY, spinal stenosis, chronic venous insufficiency, history of CVA, coronary artery disease, osteoarthritis, chronic pain, history of subdural. SOCIAL HISTORY: Lives in the assisted living. Negative tobacco, ETOH. FAMILY HISTORY: Noncontributory. REVIEW OF SYSTEMS: No fever, chills or sweats. No upper respiratory infection. Denies cough, denies aspiration. No nausea or vomiting. PHYSICAL EXAMINATION: EYES: Negative icterus. ENT: No thrush Mallampati 2. LUNGS: Clear, decreased. HEART: Regular. [facility] [address] [place] [address] CONSULTATION Name: MATT STARR Room #: 311-P [facility]#: [id number] Admission: 04/16/17 Attend Phys: Cal Scott MD Discharge: Date of : [birth year] Report #: [id number] ABDOMEN: Bowel sounds present. EXTREMITIES: No calf tenderness. DIAGNOSTIC DATA: Decubitus x-ray showed small right and minimal left effusion. Right hip normal anatomic alignment. Chronic changes, left hip. LABORATORY DATA: BUN 42, creatinine 1.6. White count 10, hemoglobin 10.2, platelets 278. By: 1922 0119 Raul Canas MD /nt
--- NOTE | ~2017-04-16 | EKG ---
[address] [place] [employer] [place] [address] ELECTROCARDIOGRAM REPORT Name: MATTYMATT Room #: 311-P ADM IN M.R.#: [id number] Admission: 04/16/17 Attend Phys: Cal Scott MD Discharge: Date of : [birth year] Report #: [id number] THIS REPORT FOR: //name// [facility] ED Test Date: 2017-04-16 Test Time: 11:31:21 Pat Name: MATT STARR Department: Room: 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: TIKA Hsu : 1930 Requested By: Isabel Valenzuela Order Number: [id number] MD: Feliciano Schneider Measurements Intervals [place] Rate: 78 P: -11 MS: 200 QRS: -17 QRSD: 94 T: 24 QT: 378 QTc: 431 Interpretive Statements Sinus rhythm Left ventricular hypertrophy Compared to ECG 02/26/2017 16:29:31 No significant changes Electronically Signed On 04-17-2017 7:52:08 CDT by Feliciano Schneider [email or web address] <ELECTRONICALLY SIGNED> By: Feliciano Schneider MD, [facility] 04/17/17 0752 113 113 Feliciano Schneider MD, [facility] /EPI
[~2017-04-16 10:30] MED LIST changes: +CEPHALEXIN 500500 M3 PO; +GABAPENTIN 100100 MG PO; +Hydrocerin Cream 4 O TOP; +LIDODERM 5%1 PATCH TRANSDERM; +MIRALAX17 GM PO; +MORPHINE 11 MG/2 ML TOP; +PROBIOTIC1 EAC1 PO; +SENOKOT-S1 TA1 PO; +TORSEMIDE20 MG PO
[2017-04-16 10:31] VITALS: BP 117/53
[2017-04-16] MEDS ORDERED: TRAMADOL 50 MG50 MG PO (10:39)
[2017-04-16] MEDS ORDERED: NORVASC5 MG PO (10:40)
[2017-04-16 11:41] LABS: ABSOLUTE NEUTROPHILS 8.1 thou/uL (1.4-8.2); BASOPHILS 0.4 % (0.0-2.0); EOSINOPHILS 1.8 % (0.0-3.0); HEMATOCRIT 32.4 % (37.0-47.0); HEMOGLOBIN 10.2 gm/dL (12.0-15.0); LYMPHOCYTES 10.3 % (24.0-44.0); MANUAL DIFF NO; MCH 29.9 pg (26.0-34.0); MCHC 31.6 g/dL (28.0-37.0); MCV 94.5 fL (80.0-100.0); MONOCYTES 6.5 % (1.0-8.0); PLATELET COUNT 278 thou/uL (150-400); RBC 3.43 mil/uL (4.20-5.00); RDW 16.9 % (10.5-14.5)
[2017-04-16 11:48] LABS: ANION GAP 3 mmol/L (7-16); BUN 42 mg/dL (7-18); CALCIUM 9.7 mg/dL (8.5-10.1); CHLORIDE 109 mmol/L (98-107); CO2 33 mmol/L (21-32); CREATININE 1.6 mg/dL (0.6-1.0); GLUCOSE 123 mg/dL (74-106); POTASSIUM 4.2 mmol/L (3.5-5.1); SODIUM 145 mmol/L (136-145)
[2017-04-16 11:56] LABS: ALKALINE PHOSPHATASE 92 U/L (46-116); SGOT 28 U/L (15-37); SGPT 18 U/L (30-65); TOTAL BILIRUBIN 0.2 mg/dL (<0.1-1.0); TOTAL PROTEIN 7.4 g/dL (6.4-8.2); TROPONIN-I < 0.04 ng/mL (<0.04-0.07)
[2017-04-16 13:04] LABS: URINE BILIRUBIN NEGATIVE (Negative); URINE BLOOD 1+ (Negative); URINE COLOR YELLOW; URINE GLUCOSE-RANDOM* NEGATIVE (Negative); URINE KETONES NEGATIVE (Negative); URINE NITRITE NEGATIVE (Negative); URINE PROTEIN (DIPSTICK) NEGATIVE (Negative); URINE UROBILINOGEN 0.2 E.U./dl (0.2-1.0)
[2017-04-16 13:09] LABS: SQUAMOUS 0-3 Few /LPF (0-3); URINE WBC 0-5 Rare /HPF (0-5)
[2017-04-16 13:10] LABS: BACTERIA 1-9 Few /HPF (None Seen); CASTS None Seen /LPF (None Seen); CRYSTALS None Seen /LPF (None Seen); URINE RBC 0-2 Rare /HPF (0-2); YEAST Present (None Seen)
[2017-04-16 14:28] VITALS: BP 129/72
[2017-04-16 14:30] VITALS: BP 139/65
[2017-04-16] MEDS ORDERED: HYDROCODONE-AP1 EAC6 PO (15:33)
[2017-04-16 18:32] VITALS: BP 140/96
[2017-04-16 20:07] VITALS: BP 126/42
[2017-04-16 23:56] VITALS: BP 109/54
[2017-04-17 04:24] VITALS: BP 129/75
[2017-04-17 08:23] VITALS: BP 146/72
[2017-04-17 15:47] VITALS: BP 145/67
[2017-04-17 20:00] VITALS: BP 149/62
[2017-04-18 04:00] VITALS: BP 142/60
[2017-04-18 08:00] VITALS: BP 169/86
[2017-04-18 09:05] LABS: ABSOLUTE NEUTROPHILS 6.6 thou/uL (1.4-8.2); BASOPHILS 0.3 % (0.0-2.0); EOSINOPHILS 1.1 % (0.0-3.0); HEMATOCRIT 30.9 % (37.0-47.0); HEMOGLOBIN 9.8 gm/dL (12.0-15.0); LYMPHOCYTES 14.1 % (24.0-44.0); MANUAL DIFF NO; MCH 29.6 pg (26.0-34.0); MCHC 31.8 g/dL (28.0-37.0); MCV 93.2 fL (80.0-100.0); MONOCYTES 8.9 % (1.0-8.0); PLATELET COUNT 267 thou/uL (150-400); POLYS 75.6 % (36.0-66.0); RBC 3.31 mil/uL (4.20-5.00); RDW 16.8 % (10.5-14.5); WBC 8.8 thou/uL (4.0-11.0)
[2017-04-18 09:17] LABS: CALCIUM 9.7 mg/dL (8.5-10.1); POTASSIUM 4.1 mmol/L (3.5-5.1)
[2017-04-18 16:00] VITALS: BP 159/78
[2017-04-18 20:00] VITALS: BP 143/67
[2017-04-19 04:10] VITALS: BP 144/62
[2017-04-19 07:39] VITALS: BP 145/73
[2017-04-19 13:35] LABS: ABG SAMPLE TYPE ARTERIAL; BE(vivo) 7.2 mmol/L (-2 to +3); HCO3 32.6 mmol/L (22.0-26.0); LACTATE 1.37 mmol/L (0.5-2.0); O2(CT) 13.7 mL/dL (15.0-23.0); O2Hb 94.1 % (92.0-98.0); PCO2 50.7 mmHg (35.0-45.0); PO2 81.9 mmHg (80.0-100.0); STICK SITE R.RADIAL; pH 7.426 (7.360-7.450); sO2 96.1 % (92.0-98.0); tCO2 34.2 mmol/L (24.0-30.0)
[2017-04-19 13:36] LABS: ABG COMMENT NO COMPLICATIONS.
[2017-04-19 19:28] VITALS: BP 134/50
[2017-04-20 03:53] VITALS: BP 142/74
[2017-04-20 05:45] LABS: HEMATOCRIT 31.2 % (37.0-47.0); HEMOGLOBIN 10.1 gm/dL (12.0-15.0); MCH 29.4 pg (26.0-34.0); MCHC 32.3 g/dL (28.0-37.0); MCV 91.1 fL (80.0-100.0); RBC 3.43 mil/uL (4.20-5.00); RDW 16.5 % (10.5-14.5); WBC 8.5 thou/uL (4.0-11.0)
[2017-04-20 06:05] LABS: ALBUMIN 2.7 g/dL (3.4-5.0); CALCIUM 9.5 mg/dL (8.5-10.1); POTASSIUM 4.6 mmol/L (3.5-5.1); TOTAL BILIRUBIN 0.4 mg/dL (<0.1-1.0); TOTAL PROTEIN 6.2 g/dL (6.4-8.2)
[2017-04-20 08:56] VITALS: BP 124/60
[2017-04-20] MEDS ORDERED: UNASYN 1.5 GM1.5 GM IV (14:36)
[2017-04-20] MEDS ORDERED: TRIAMCINOLONE 080 G3 TOP (14:46)
[2017-04-20] MEDS ORDERED: DUONEB 2.5-0.5 M3 ML INH (14:46)
[2017-04-20] MEDS ORDERED: CELEBREX 200 M200 M1 PO (14:48)
== END 2017-04-20 17:03 | DRG 177 ==
LOC: ER 10:30 → EROBS 13:27 → 3N 13:27
PROVIDERS: Internal Medicine; Physician Assistant
DX: J69.0 Pneumonitis due to inhalation of food and vomit (principal); G92 Toxic encephalopathy; E43 Unspecified severe protein-calorie malnutrition; J96.90 Respiratory failure, unspecified, unspecified whether with hypoxia or hypercapnia; L03.116 Cellulitis of left lower limb; L03.115 Cellulitis of right lower limb; N17.9 Acute kidney failure, unspecified; N39.0 Urinary tract infection, site not specified; I25.10 Atherosclerotic heart disease of native coronary artery without angina pectoris; M19.90 Unspecified osteoarthritis, unspecified site; M48.00 Spinal stenosis, site unspecified; M10.9 Gout, unspecified; J44.9 Chronic obstructive pulmonary disease, unspecified; E78.5 Hyperlipidemia, unspecified; E11.40 Type 2 diabetes mellitus with diabetic neuropathy, unspecified; I10 Essential (primary) hypertension; E86.0 Dehydration; G47.33 Obstructive sleep apnea (adult) (pediatric); D64.9 Anemia, unspecified; G89.29 Other chronic pain; R13.10 Dysphagia, unspecified; Z68.29 Body mass index [BMI] 29.0-29.9, adult; Z96.651 Presence of right artificial knee joint; Z96.641 Presence of right artificial hip joint; G40.909 Epilepsy, unspecified, not intractable, without status epilepticus; I87.2 Venous insufficiency (chronic) (peripheral); R41.0 Disorientation, unspecified; Z86.73 Personal history of transient ischemic attack (TIA), and cerebral infarction without residual deficits; Z91.81 History of falling; Z79.82 Long term (current) use of aspirin; Z79.899 Other long term (current) drug therapy
CPT/HCPCS: 10096

== ENCOUNTER 2018-04-18 13:30 | Inpatient (IN) | payer OTHER ==
[~2018-04-18] VITALS: Ht 144.8 cm; Wt 58.1 kg
--- NOTE | ~2018-04-18 | PATH ---
[facility] [address] [place] [address] PATHOLOGY RPT PROCEDURE Name: MATT STARR Room #: 219-P ADM IN M.R.#: [id number] Admission: 04/18/18 Date of : [birth year] Discharge: Report #: [id number] Path Case #: [id number] Note [facility] Accession Number: [id number] TESTS RESULT FLAG UNITS REF RANGE LAB Clinician Provided Cytology Information No. of containers..01 Other (Miscellaneous) Source: ASCITES DIAGNOSIS: ASCITES INCONCLUSIVE. RARE ATYPICAL CELLS ARE PRESENT. MESOTHELIAL CELLS ARE PRESENT. SEE COMMMENT. Comment: Rare atypical cells are present in this abdominal fluid specimen. An attempt was made to workup these cells via immunohistochemistry, however no tissue remains on the cell block. Correlation is recommended. Signed out by: 02 Delta Owen MD, Pathologist NPI- [id number] Performed by: 01 Kenyatta Mansfield, Motor Checker ([facility]) Gross description: 01 26ML, YELLOW, CLOUDY /LCS FLAG LEGEND: L-Low Normal,H-High Normal,LL-Alert Low,HH-Alert High <-Panic Low,>-Panic High,A-Abnormal,AA-Critical Abnormal Performed at: [address] [place] [address] Eloy Saleh MD, [address] [place] [id number] Samantha Cerna MD, Performed at: [address], [place], [place] [id number] MD Eloy Saleh MD Phone: [phone]
--- NOTE | ~2018-04-18 | HC ---
[facility] [place] [address] CONSULTATION Name: MATT STARR Room #: 219-P ADM IN .R.#: [id number] Admission: 04/18/18 Attend Phys: Cal Scott MD Discharge: Date of : [birth year] Report #: [id number] THIS REPORT FOR: //name// CC: Cal Scott DATE OF SERVICE: 04/23/2018 ATTENDING PHYSICIAN: Cal Scott MD REASON FOR CONSULTATION: Worsening leukocytosis. HISTORY OF PRESENT ILLNESS: The patient is an 87-year-old white woman with multitude of medical problems who is admitted with history of confusion and essentially going downhill and significant hypoxemia, requiring high flow oxygen supplementation. During this admission, the patient found to have significant ascites. Paracentesis is obtained. The patient also has evidence of pulmonary infiltrate, possibly aspiration pneumonia. She had developed leukocytosis that is slowly worsening. Currently, the patient is encephalopathic, not arousable, and I obtained all information on this patient by reviewing her records and discussion with the patient's sisters. The patient just returned from Radiology where she underwent repeat CT scan of the abdomen and pelvis as well as paracentesis and drainage of 500 mL of peritoneal fluid. PAST MEDICAL HISTORY: Diabetes mellitus, history of falls with fracture left humerus requiring open reduction and internal fixation, history of right total hip replacement, vitamin B12 deficiency, obstructive sleep apnea requiring BiPAP and supplemental oxygen, history of recurrent aspiration, coronary artery disease, edema of lower extremities, possible lymphedema; history of sacral decubitus that intermittently gets better, then worse; gastroesophageal reflux, hypertension, gout. SOCIAL HISTORY: The patient is , I believe she has no children. No history of alcohol abuse or she has just used socially. She has 2 sisters that are currently at bedside. REVIEW OF SYSTEMS: Unable to obtain. PHYSICAL EXAMINATION: GENERAL: Chronically ill-appearing woman, unarousable, requiring high flow oxygen. VITAL SIGNS: Temperature 98.9, pulse 106, respirations 24, BP 123/57, weight 68.1 kg, height 144.7 cm. O2 saturation 90% on 15 liters oxygen per nasal cannula. HEENMT: Eyes: Unable to examine, the patient tightly closing eyes. Mouth: Dry mucous membrane, periodontal disease. [facility] [address] [place] [address] CONSULTATION Name: MATT STARR Room #: 219-P [facility] IN .R.#: [id number] Admission: 04/18/18 Attend Phys: Cal Scott MD Discharge: Date of : [birth year] Report #: [id number] NECK: No palpable masses. LUNGS: Rhonchi, crackles in both lung bases. HEART: S1, S2. No gallop or murmur. ABDOMEN: There are obviously palpable intra-abdominal masses that may be metastatic in nature. PELVIC AND RECTAL: Deferred. EXTREMITIES: Pressure dressing on legs, not removed. BACK: Healed sacral decubitus with no evidence of infection. NEUROLOGIC: Unable to evaluate. LABORATORY DATA: Peritoneal fluid exam on 04/20/2018 revealed this to be cloudy with 527 red blood cells, 357 nucleated cells, 38% of them neutrophils, 24% lymphocytes, 38% macrophage, no cytology available. The repeat peritoneal fluid analysis is pending today. Sodium 139, potassium 4.5, BUN 33, creatinine 1.9, glucose 102. Albumin 1.5 g/dL. Protime 11 seconds, INR 1.9. White blood cell count 33,400, hemoglobin 7.8 g/dL, platelets 508,000. Hepatitis serology negative. MRSA screen negative. Urinalysis revealed squamous epithelial cells, wbc's in clumps, pyuria, mucus and hyaline casts. A set of gases on 04/22/2018 revealed evidence of CO2 retention, significant hypoxemia and evidence of respiratory alkalosis. Lactate normal. This set of gases on 15 liters per nasal cannula. MICROBIOLOGY DATA: All pending. Cytology not available. RADIOLOGY EVALUATION: A CT scan of the abdomen and pelvis revealed evidence of bilateral pulmonary infiltrates and possible abnormal liver with nodularities compatible with cirrhosis as well as omental thickening and caking compatible with metastatic disease, and evidence of abnormal findings on ovaries, may be ovarian carcinoma. Incidental findings of cholelithiasis and vascular calcifications noted as well. ASSESSMENT: 1. Worsening leukocytosis secondary to diagnosis #2, #3, and #4. 2. Aspiration pneumonia, bilateral. 3. Intraabdominal malignancy, undetermined primary. 4. Diabetes mellitus. 5. Acute kidney injury on chronic kidney disease. 6. Severe malnutrition. 7. Anemia of chronic disease. 8. Encephalopathy secondary to above. SUGGESTIONS AND RECOMMENDATION: Have discussed the patient's situation with sisters, with the patient's nurse and Dr. Cal Scott. Currently, my recommendation is to possibly proceed with comfort care and hospice care. Ideally, should know what the malignancy might be and cytology has been ordered on today's peritoneal fluid aspirate. No further recommendation regarding [facility] [address] [place] [address] CONSULTATION Name: MATT STARR Room #: 219-P ADM IN M.R.#: [id number] Admission: 04/18/18 Attend Phys: Cal Scott MD Discharge: Date of : [birth year] Report #: [id number] antibiotic at present time. Dr. Scott, thank you for requesting my suggestions. <ELECTRONICALLY SIGNED> By: Paco Gibbs MD 04/25/18 0939 1122 1424 Paco Gibbs MD /nt
--- NOTE | ~2018-04-18 | 2DMMODE ---
[facility] [place] [address] 2 D/M-MODE ECHOCARDIOGRAM Name: MATT STARR Room #: 219-P [facility]#: [id number] Admission: 04/18/18 Attend Phys: Cal Scott, Discharge: Date of : [birth year] Date of Service: 04/19/18 0958 Report #: [id number] THIS REPORT FOR: //name// APPROVED REPORT Study performed: 04/19/2018 08:30:12 EXAM: Comprehensive 2D, Doppler, and color-flow Echocardiogram Patient Location: Bedside Room #: 219 Status: routine BSA: 1.60 HR: 85 bpm BP: 141/52 mmHg Other Information Study Quality: Fair Indications Edema 2D Dimensions LVEF(%): 60.19 (>50%) IVSd: 10.72 (7-11mm) LVOT Diam: 19.69 (18-24mm) LVDd: 39.64 mm PWd: 11.40 (7-11mm) Ascending Ao: 34.00 (22-36mm) LVDs: 27.10 (25-40mm) Aortic Root: 32.81 mm IVC: 12.00 mm Fournier's LVEF: 60.19 % Aortic Valve AoV Peak Que.: 1.15 m/s AO Peak Gr.: 5.32 mmHg LVOT Max P.97 mmHg LVOT Max V: 1.00 m/s KRYSTAL Vmax: 2.63 cm2 Mitral Valve E/A Ratio: 0.6 MV Decel. Time: 279.13 ms MV E Max Que.: 0.77 m/s MV A Que.: 1.25 m/s MV PHT: 80.95 ms IVRT: 138.41 ms Pulmonary Valve [facility] [employer] [address] [place] [address] 2 D/M-MODE ECHOCARDIOGRAM Name: MATT STARR Cam Room #: 219-P [facility]#: [id number] Admission: 04/18/18 Attend Phys: Cal Scott, Discharge: Date of : [birth year] Date of Service: 04/19/18 0958 Report #: [id number] PV Peak Que.: 0.79 m/s PV Peak Gr.: 2.50 mmHg Pulmonary Vein P Vein S: 0.43 m/s P Vein A: 0.25 m/s P Vein D: 0.26 m/s P Vein A Dur.: 92.3 msec P Vein S/D Ratio: 1.65 Left Ventricle The left ventricle is normal size. There is normal LV segmental wall motion. There is normal left ventricular wall thickness. The left ventricular systolic function is normal. The left ventricular ejection fraction is within the normal range. LVEF is 60-65%. Grade I - abnormal relaxation pattern. Right Ventricle The right ventricle is normal size. The right ventricular systolic function is normal. Atria The left atrium size is normal. The right atrium size is normal. Aortic Valve Aortic valve is calcified. No aortic regurgitation is present. There is no aortic valvular stenosis. Mitral Valve Mitral annular calcification Mild mitral regurgitation. No evidence of mitral valve stenosis. Tricuspid Valve The tricuspid valve is normal in structure. There is no tricuspid valve regurgitation noted. Pulmonic Valve The pulmonary valve is normal in structure. There is no pulmonic valvular regurgitation. Great Vessels The aortic root is normal in size. IVC is normal in size and collapses >50% with inspiration. Pericardium There is no pericardial effusion. <Conclusion> [facility] [address] [place] [address] 2 D/M-MODE ECHOCARDIOGRAM Name: MATT STARR Room #: 219-P [facility]#: [id number] Admission: 04/18/18 Attend Phys: Cal Scott, Discharge: Date of : [birth year] Date of Service: 04/19/18957 Report #: [id number] The left ventricular systolic function is normal. LVEF is 60-65%. Mild diastolic dysfunction Aortic valve is calcified. No aortic regurgitation or stenosis Mitral annular calcification. Mild mitral regurgitation. Pulmonary artery pressure could not be reliably ascertained There is no pericardial effusion. <ELECTRONICALLY SIGNED> By: Feliciano Schneider MD, [facility] 04/19/1858 7 7 Feliciano Schneider MD, [facility] /INF
--- NOTE | ~2018-04-18 | HC ---
[facility] [place] [address] CONSULTATION Name: MATT STARR Room #: 219-P ADM IN M.R.#: [id number] Admission: 04/18/18 Attend Phys: Cal Scott MD Discharge: Date of : [birth year] Report #: [id number] THIS REPORT FOR: //name// CC: Cal Scott REASON FOR CONSULTATION: Chronic lower extremity edema and acute kidney injury. HISTORY OF PRESENT ILLNESS: This is an 87-year-old with past medical history of diabetes mellitus, COPD, obstructive sleep apnea, aspiration pneumonitis, large hiatal hernia and esophageal strictures with remote history of CVA. She had been having some issues with shortness of breath and confusion. She presented to her primary care office with swelling of the abdomen and the feet. She was discovered to have mild abdominal ascites. CT was concerning for cirrhosis. She is admitted for further evaluation and management. Ascites workup is in progress. Kidney function revealed that her creatinine was 1.6 on presentation and had risen up to 1.9. Previous kidney numbers had been ranging anywhere from 1 to 1.6. She has never been evaluated by Nephrology in the past. U/A looked dirty with white blood cell clumps. Because of her lower extremity edema and ascites, I am being asked to evaluate and assist with the diuretic regimen. PAST MEDICAL HISTORY: 1. Obstructive sleep apnea. 2. UTI. 3. Diabetes mellitus. 4. Diabetic neuropathy. 5. Remote history of subdural hematoma. 6. Seizure disorder. 7. Hypertension. 8. Depression. 9. Reflux. 10. Esophagitis. 11. Hiatal hernia. MEDICATIONS: 1. Potassium. 2. Pantoprazole. 3. Keppra. 4. Allopurinol. 5. Aspirin. 6. Meloxicam. FAMILY HISTORY: No known chronic kidney disease in the family. SOCIAL HISTORY: She lives in a shelter center. REVIEW OF SYSTEMS: GENERAL: No fever or chills. [facility] [address] [place] [address] CONSULTATION Name: MATT STARR Room #: 219-P [facility] IN [facility]#: [id number] Admission: 04/18/18 Attend Phys: Cal Scott MD Discharge: Date of : [birth year] Report #: [id number] CARDIOVASCULAR: Significant for shortness of breath. PULMONARY: No cough or hemoptysis. GASTROINTESTINAL: No nausea or vomiting. GENITOURINARY: No frequency, no urgency. MUSCULOSKELETAL: Lower extremity lymphedema with wraps applied bilaterally. PHYSICAL EXAMINATION: GENERAL: She is alert, oriented. VITAL SIGNS: Blood pressure is 110/58. Temperature is 36.5. HEAD AND NECK: No jugular venous distention. CHEST: Decreased air entry bilaterally. ABDOMEN: Ascites present. LOWER EXTREMITIES: Wraps applied bilaterally. LABORATORY DATA: Laboratory values reviewed. White blood cell count 35,000, hemoglobin 8.4, MCV is low at 72 and platelet count is 531,000. Creatinine 1.9. ASSESSMENT, IMPRESSION AND PLAN: 1. Acute kidney injury. 2. Chronic kidney disease. 3. Cirrhosis of unclear reason. 4. Chronic lymphedema. 5. Diabetes mellitus. SUMMARY: This is a very difficult situation in this patient. Unfortunately, diuresis will ultimately limit in continuing rise of her creatinine and BUN. GI is trying to manage her ascitic issues. Currently, she is maintained on spironolactone and I will keep on the same. I will send appropriate investigation for her kidney issues. Of concern is the leukocytosis, anemia with low MCV and thrombocytosis. I think she will need Hematology consultation if we plan to be aggressive with her treatments. She might even need a bone marrow biopsy given her presentation. From the kidney perspective, she needs fluid and salt restriction. Continue with the spironolactone. No Lasix for now. We will continue to follow along. <ELECTRONICALLY SIGNED> By: Manuel Woodruff MD 04/24/18 0838 [id number] Manuel Woodruff MD /nt
--- NOTE | ~2018-04-18 | H ---
[facility] [place] [address] HISTORY AND PHYSICAL Name: MATT STARR Room #: 219-P [facility] IN ..#: [id number] Admission: 04/18/18 Attend Phys: Cal Scott MD Discharge: 04/27/18 Date of : [birth year] Report #: [id number] THIS REPORT FOR: //name// CC: Cal Scott DATE OF SERVICE: 04/18/2018 CHIEF COMPLAINT: "I feel terrible. My legs are so swollen, they really hurt." HISTORY OF PRESENT ILLNESS: The patient made a scheduled routine visit to my office today and this was about all she was able to say. She had not been using her oxygen for several weeks. Her breathing had become more short. Her abdomen had become distended. Chronic edema in her legs had become even worse, worse enough so that she decided to have staff at her facility use lymphedema wraps, wrap her legs with Brian wraps to help the swelling. Even the lymphedema wraps were ineffective at reducing the pain she felt in her legs. She appeared confused and was unable to state anything and was unable to give more specific details. When asked if she was sick enough to go to the hospital or she just wanted to go home with medicine to be comfortable, she said "you decide, you are the doctor." PAST MEDICAL HISTORY: Significant for multiple admissions over the last several years. On 08/22/2017, she had fallen at home and had severe left-sided chest wall pain and ribcage pain with presentation was that of sepsis with fever, rapid heart rate, rapid respiratory rate and elevated white blood cell count. She was found to have a urinary tract infection with gram-negative rods that accounted for toxic encephalopathy leading to the fall. Her albumin was sufficiently low to qualify for severe malnutrition. She has B12 deficiency and diet-controlled type 2 diabetes. She has a severe obstructive sleep apnea with a BiPAP device prescribed, but she has refused to use it. She has had a 30-40 pound intentional weight loss over the last several years, but has been quite disappointed to find out that her weight loss (which was indeed a laudable effort with achieving planned result) was inadequate to rid her of the need for BiPAP. She has COPD with chronic mild respiratory failure and needs oxygen, usually 2-3 liters -- she has not been wearing her oxygen recently, she says, but is unclear for how long. She has chronic intermittent mild aspiration and intermittent aspiration pneumonia. This has been a problem on previous hospital stays in 2017. In addition to diet controlled type 2 diabetes, she has a diabetic neuropathy. She frequently falls backwards. She sustained a right frontal subdural hematoma from one of these falls in 03/2015. Subsequently, she had a seizure disorder, which is well managed on low doses of levetiracetam. [address] [address] HISTORY AND PHYSICAL Name: MATT STARR Room #: 219-P [facility] IN ..#: [id number] Admission: 04/18/18 Attend Phys: Cal Scott MD Discharge: 04/27/18 Date of : [birth year] Report #: [id number] Emergency intubation is very challenging to accomplish because of kyphosis and because of severe arthritic changes in her cervical spine, displace her neck and epiglottis and larynx anteriorly to such a degree that it is difficult to accomplish intubation. She has stable coronary artery disease. She has chronic multifactorial lymphedema and edema in both lower extremities, which has been more of a problem recently. She has generalized osteoarthritis, at times severe joint pain and dyslipidemia. Her left humerus required an operative repair in 02/2015. She has hypertension, gout, depression, gastroesophageal reflux disease. She has a chronic sacral ulcer that waxes and wanes depending on how active she is. She has gastroesophageal reflux disease, history of grade C esophagitis. She has a large hiatal hernia, has been found to have gastritis and duodenitis on past investigations. There is a possibility that she suffers from gastroparesis. CURRENT MEDICATION: List verified several months ago in my office, is as follows: Potassium chloride extended release 10 mEq 1 per day. Torsemide 20 mg 2 in the morning and 1 in the early afternoon every day. Pantoprazole 40 mg 1 in the morning and 1 before the evening meal. Allopurinol 300 mg 1 daily, amlodipine 5 mg 1 daily. Levetiracetam 250 mg tablets half tablet in the morning, half tablet in the evening. Aspirin 81 mg daily. Iron 65 mg daily. Stool softener. Vitamin D 5000 units. Vitamin C 500 units. Meloxicam 7.5 mg once daily. She also takes tramadol 50 mg as needed for pain. FAMILY HISTORY: Two of her sisters are currently living and apparently well. Their medical problems are not currently known. SOCIAL HISTORY: For long time, she has lived in "a shelter center" environment. She recently moved to a new facility, [facility], that does have assisted living added services available. She has recently started using one of those services to start wrapping her legs because of leg pain, but has refused to use their services to make sure she gets her medications correctly. She does not drink nor smoke. She wished to be a "do not resuscitate" on her hospital stays for the last several years. She wishes that again on this admission. REVIEW OF SYSTEMS: The swelling in her legs has become more difficult recently, instead of making an appointment to address this issue, she simply started to have personnel come in and wrap her legs with lymphedema wraps. It is unclear how long this has been going on for. She also reports having bloating and abdominal distention, again more specifics are not available. She reports a [facility] [address] [place] [address] HISTORY AND PHYSICAL Name: MATT STARR Room #: 219-P [facility] IN [facility]#: [id number] Admission: 04/18/18 Attend Phys: Cal Scott MD Discharge: 04/27/18 Date of : [birth year] Report #: [id number] normal bowel movement within the last 24 hours. She denies urinary problems. She has been more short of breath, but has no further details. She does report she has not been using her oxygen recently, but cannot remember how long this has been nor why she stopped using her oxygen and could not remember why the staff at her living center have allowed her to refuse to use her oxygen. PHYSICAL EXAMINATION: GENERAL: Shows an 87-year-old female who is confused and unable to give a good history. She is in mild to moderate distress with pain in her legs. She is also uncomfortable in her distended abdomen. VITAL SIGNS: Her blood pressure is 131/78, her heart rate is 103, her respiratory rate is 24. Oxygen saturation on room air in the office was 84%. After 3 liters were applied, her oxygen saturation jose to 90%. HEENT: Her oropharynx is unremarkable. LUNGS: Show markedly decreased air movement with decreased diaphragm and diaphragmatic excursion. There are no abnormal extra breath sounds present. CARDIOVASCULAR: S1 and S2 are normal and regular. ABDOMEN: Markedly distended, however, it is soft. Bowel sounds are present, but diminished. There is some very minimal diffuse tenderness and rebound tenderness that is not present. It was unable to determine the absence or presence of organomegaly because of the distention. EXTREMITIES: Her legs are moderately edematous, as in the past. They are covered with lymphedema wraps and the wraps were not removed at this time. NEUROLOGIC: No gross focal neurological deficits were identified. At the time of dictation, the results of the CT scan are available showing bilateral lower pulmonary pneumonitis/atelectasis. There is nonspecific bowel gas pattern present. There is marked ascites with fluid extending diffusely throughout the abdomen and loops of bowel. The liver has somewhat small appearance with perhaps nodular surface, suggestive of cirrhosis, but not diagnostic on a noncontrast CT scan. 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 There is leukocytosis with some mild left shift. Urinalysis is abnormal. LABORATORY DATA: Her creatinine is mildly elevated compared to previous ones. The albumin is low enough for severe malnutrition. ASSESSMENT: 1. Toxic encephalopathy with her disease process causing her to have confusion. 2. Severe malnutrition with an albumin of 2.2. 3. Bilateral lower lobe pneumonitis/atelectasis. 4. History of intermittent aspiration pneumonias. 5. Acute kidney injury of undetermined degree on top of chronic kidney disease. [address] [address] HISTORY AND PHYSICAL Name: MATT STARR Room #: 219-P [facility] IN [facility]#: [id number] Admission: 04/18/18 Attend Phys: Cal Scott MD Discharge: 04/27/18 Date of : [birth year] Report #: [id number] 6. New tense ascites. 7. Abnormal liver contours and shape on CT scan -- this may be from cirrhosis. 8. Worsened leg edema and pain. 9. Other medical problems as mentioned above. 10. Additionally, history of mild iron deficiency anemia. The anemia has been corrected with oral iron tablets. PLAN: The patient requires full inpatient hospital admission for further evaluation of these multiple abnormalities and treatment. She is being treated for an aspiration pneumonia with IV antibiotics and aerosolized bronchodilators. Blood cultures and sputum are being obtained. GI consultation regarding her ascites and possible cirrhosis. It is noted that as a diabetic for many years with lipid abnormalities, hepatic steatosis leading to cirrhosis is certainly possible. Also, she could have passive congestive heart failure causing this, although an echocardiogram of 08/18/2015 showed normal systolic function. There was grade 1 diastolic dysfunction present, and note was made that the inferior vena cava was normal in size with normal respirophasic diameter changes present suggesting the absence of right heart failure. Significant passive congestion could lead to the same liver and ascites changes. Pulmonary medicine consultation will be requested as well. <ELECTRONICALLY SIGNED> By: Cal Scott MD 04/28/18 1740 [id number] Cal Scott MD /nt
--- NOTE | ~2018-04-18 | PATH ---
[facility] [address] [place] [address] PATHOLOGY RPT PROCEDURE Name: MATT STARR Room #: 219-P ADM IN M.R.#: [id number] Admission: 04/18/18 Date of : [birth year] Discharge: Report #: [id number] Path Case #: [id number] Note [facility] Accession Number: [id number] TESTS RESULT FLAG UNITS REF RANGE LAB Clinician Provided Cytology Information No. of containers..01 Other (Miscellaneous) Source: 01 ABDOMINAL FLUID DIAGNOSIS: 02 ABDOMINAL FLUID INCONCLUSIVE. THIS INTERPRETATION INCLUDES EVALUATION OF A CELL BLOCK. COMMENT; THERE ARE ATYPICAL CELLS SEEN WHICH ARE POSITIVE WITH IMMUNOPEROXIDASE STAIN BEREP4 AND NEGATIVE WITH CALRETININ CANNOT RULE OUT MALINANCY. CLINICAL CORRELATION SUGGESTED. Signed out by: 02 Rober Jackson MD, Pathologist NPI- [id number] Performed by: 03 Felisa Valladares, Scientific Specialist ([facility]) Gross description: 01 20ML, YELLOW, CLOUDY /LCS FLAG LEGEND: L-Low Normal,H-High Normal,LL-Alert Low,HH-Alert High <-Panic Low,>-Panic High,A-Abnormal,AA-Critical Abnormal Performed at: [address] [place] [address] Eloy Saleh MD, [address] [address] Kaylan Ramos MD, [address] [address] Gerry Aldridge MD, Performed at: [address], [place], [place] [id number] MD Eloy Saleh MD Phone: [phone]
--- NOTE | ~2018-04-18 | H ---
[facility] [place] [place] [address] HISTORY AND PHYSICAL Name: MATT STARR Room #: 219-P [facility] IN ..#: [id number] Admission: 04/18/18 Attend Phys: Cal Scott MD Discharge: 04/27/18 Date of : [birth year] Report #: [id number] THIS REPORT FOR: //name// CC: Cal Scott DATE OF SERVICE: 04/18/2018 ADDENDUM. This is a continuation, previous history and physical was interrupted. She appeared confused and was unable to state anything and was unable to give more specific details. When asked if she was sick enough to go to the hospital or she just wanted to go home with medicine to be comfortable, she said "you decide, you are the doctor." PAST MEDICAL HISTORY: Significant for multiple admissions over the last several years. On 08/22/2017, she had fallen at home and had severe left-sided chest wall pain and ribcage pain with presentation was that of sepsis with fever, rapid heart rate, rapid respiratory rate and elevated white blood cell count. She was found to have a urinary tract infection with gram-negative rods that accounted for toxic encephalopathy leading to the fall. Her albumin was sufficiently low to qualify for severe malnutrition. She has B12 deficiency and diet-controlled type 2 diabetes. She has a severe obstructive sleep apnea with a BiPAP device prescribed, but she has refused to use it. She has had a 30-40 pound intentional weight loss over the last several years, but has been quite disappointed to find out that her weight loss (which was indeed a laudable effort with achieving planned result) was inadequate to rid her of the need for BiPAP. She has COPD with chronic mild respiratory failure and needs oxygen, usually 2-3 liters -- she has not been wearing her oxygen recently, she says, but is unclear for how long. She has chronic intermittent mild aspiration and intermittent aspiration pneumonia. This has been a problem on previous hospital stays in 2017. In addition to diet controlled type 2 diabetes, she has a diabetic neuropathy. She frequently falls backwards. She sustained a right frontal subdural hematoma from one of these falls in 03/2015. Subsequently, she had a seizure disorder, which is well managed on low doses of levetiracetam. 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 [facility] [address] [place] [address] HISTORY AND PHYSICAL Name: MATT STARR Room #: 219-P [facility]#: [id number] Admission: 04/18/18 Attend Phys: Cal Scott MD Discharge: 04/27/18 Date of : [birth year] Report #: [id number] She has stable coronary artery disease. She has chronic multifactorial lymphedema and edema in both lower extremities, which has been more of a problem recently. She has generalized osteoarthritis, at times severe joint pain and dyslipidemia. Her left humerus required an operative repair in 02/2015. She has hypertension, gout, depression, gastroesophageal reflux disease. She has a chronic sacral ulcer that waxes and wanes depending on how active she is. She has gastroesophageal reflux disease, history of grade C esophagitis. She has a large hiatal hernia, has been found to have gastritis and duodenitis on past investigations. There is a possibility that she suffers from gastroparesis. CURRENT MEDICATION: List verified several months ago in my office, is as follows: Potassium chloride extended release 10 mEq 1 per day. Toresmide 20 mg 2 in the morning and 1 in the early afternoon every day. Pantoprazole 40 mg 1 in the morning and 1 before the evening meal. Allopurinol 300 mg 1 daily, amlodipine 5 mg 1 daily. Levetiracetam 250 mg tablets half tablet in the morning, half tablet in the evening. Aspirin 81 mg daily. Iron 65 mg daily. Stool softener. Vitamin D 5000 units. Vitamin C 500 units. Meloxicam 7.5 mg once daily. She also takes tramadol 50 mg as needed for pain. FAMILY HISTORY: Two of her sisters are currently living and apparently well. Their medical problems are not currently known. SOCIAL HISTORY: For long time, she has lived in "a half-way center" environment. She recently moved to a new facility, [facility], that does have assisted living added services available. She has recently started using one of those services to start wrapping her legs because of leg pain, but has refused to use their services to make sure she gets her medications correctly. She does not drink nor smoke. She wished to be a "do not resuscitate" on her hospital stays for the last several years. She wishes that again on this admission. REVIEW OF SYSTEMS: The swelling in her legs has become more difficult recently, instead of making an appointment to address this issue, she simply started to have personnel come in and wrap her legs with lymphedema wraps. It is unclear how long this has been going on for. She also reports having bloating and abdominal distention, again more specifics are not available. She reports a normal bowel movement within the last 24 hours. She denies urinary problems. She has been more short of breath, but has no further details. She does report she has not been using her oxygen recently, but cannot remember how long this has been nor why she stopped using her oxygen and could not remember why the staff at her living center have allowed her to refuse to use her oxygen. [facility] [address] [place] [address] HISTORY AND PHYSICAL Name: MATT STARR Room #: 219-P [facility] IN [facility].#: [id number] Admission: 04/18/18 Attend Phys: Cal Scott MD Discharge: 04/27/18 Date of : [birth year] Report #: [id number] PHYSICAL EXAMINATION: GENERAL: Shows an 87-year-old female who is confused and unable to give a good history. She is in mild to moderate distress with pain in her legs. She is also uncomfortable in her distended abdomen. VITAL SIGNS: Her blood pressure is 131/78, her heart rate is 103, her respiratory rate is 24. Oxygen saturation on room air in the office was 84%. After 3 liters were applied, her oxygen saturation jose to 90%. HEENT: Her oropharynx is unremarkable. LUNGS: Show markedly decreased air movement with decreased diaphragm and diaphragmatic excursion. There are no abnormal extra breath sounds present. CARDIOVASCULAR: S1 and S2 are normal and regular. ABDOMEN: Markedly distended, however, it is soft. Bowel sounds are present, but diminished. There is some very minimal diffuse tenderness and rebound tenderness that is not present. It was unable to determine the absence or presence of organomegaly because of the distention. EXTREMITIES: Her legs are moderately edematous, as in the past. They are covered with lymphedema wraps and the wraps were not removed at this time. NEUROLOGIC: No gross focal neurological deficits were identified. At the time of dictation, the results of the CT scan are available showing bilateral lower pulmonary pneumonitis/atelectasis. There is nonspecific bowel gas pattern present. There is marked ascites with fluid extending diffusely throughout the abdomen and loops of bowel. The liver has somewhat small appearance with perhaps nodular surface, suggestive of cirrhosis, but not diagnostic on a noncontrast CT scan. 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 There is leukocytosis with some mild left shift. Urinalysis is abnormal. LABORATORY DATA: Her creatinine is mildly elevated compared to previous ones. The albumin is low enough to satisfy severe malnutrition criteria. ASSESSMENT: 1. Toxic encephalopathy with her disease process causing her to have confusion. 2. Severe malnutrition with an albumin of 2.2. 3. Bilateral lower lobe pneumonitis/atelectasis. 4. History of intermittent aspiration pneumonias. 5. Acute kidney injury of undetermined degree on top of chronic kidney disease. 6. New ascites. 7. Abnormal liver contours and shape on CT scan -- this may be from cirrhosis. 8. Worsened leg edema and pain. 9. Other medical problems as mentioned above. 10. Additionally, history of mild iron deficiency anemia. The anemia has been corrected with oral iron tablets. [address] [address] HISTORY AND PHYSICAL Name: MATT STARR Room #: 219-P [facility] IN ..#: [id number] Admission: 04/18/18 Attend Phys: Cal Scott MD Discharge: 04/27/18 Date of : [birth year] Report #: [id number] PLAN: The patient requires full inpatient hospital admission for further evaluation of these multiple abnormalities and treatment. She is being treated for an aspiration pneumonia with IV antibiotics and aerosolized bronchodilators. Blood cultures and sputum are being obtained. GI consultation regarding her ascites and possible cirrhosis. It is noted that as a diabetic for many years with lipid abnormalities, hepatic steatosis leading to cirrhosis is certainly possible. Also, she could have passive congestive heart failure causing this, although an echocardiogram of 08/18/2015 showed normal systolic function. There was grade 1 diastolic dysfunction present, and note was made that the inferior vena cava was normal in size with normal respirophasic diameter changes present suggesting the absence of right heart failure. Significant passive congestion could lead to the same liver and ascites changes. Pulmonary medicine consultation will be requested as well. <ELECTRONICALLY SIGNED> By: Cal Scott MD 04/28/18 [id number] Cal Scott MD /nt
--- NOTE | ~2018-04-18 | HC ---
[facility] [place] [address] CONSULTATION Name: MATT STARR Room #: 219-P [facility]#: [id number] Admission: 04/18/18 Attend Phys: Cal Scott MD Discharge: 04/27/18 Date of : [birth year] Report #: [id number] THIS REPORT FOR: //name// CC: Cal Scott DATE OF SERVICE: 04/19/2018 CHIEF COMPLAINT: Lower extremity and possible gluteal ulcerations. HISTORY OF PRESENT ILLNESS: This is an 87-year-old white female patient who was admitted to the hospital with swollen legs and generalized weakness. She has noted some difficulty in her breathing. She has been managed with some compression wraps to her lower extremities. I have been asked to see her with regard to wound care. PAST MEDICAL HISTORY: Positive for history of possible cirrhosis, longstanding lower extremity edema. She has a history of severe sleep apnea. She has refused to use BiPAP. She has COPD, chronic, requires oxygen; type 2 diabetes; vitamin B12 deficiency; coronary artery disease; previous cerebrovascular accident. ALLERGIES: P[employer] AND DER[employer]ED PRODUCTS. MEDICATIONS: Ipratropium, albuterol, Zithromax, ceftriaxone, fentanyl, levetiracetam, Protonix, sodium bicarbonate, tramadol, estradiol, ferrous sulfate, oxygen by nasal cannula, torsemide. FAMILY HISTORY: Noncontributory. SOCIAL HISTORY: The patient lives in a nursing care facility. No recent history of alcohol or tobacco use. REVIEW OF SYSTEMS: CONSTITUTIONAL: Denies fever or chills. She does complain of some generalized weakness. ENT: The patient denies earache, nasal drainage or sore throat. CARDIOVASCULAR: The patient denies chest pain or palpitations. PULMONARY: The patient does note shortness of breath. Denies cough or sputum production. GASTROINTESTINAL: The patient denies nausea, vomiting, diarrhea or abdominal pain. ORTHOPEDIC: The patient does note some swelling of her lower extremities and pain with movement of her lower extremities. Other systems are unobtainable and/or negative. PHYSICAL EXAMINATION: [facility] [address] [place] [address] CONSULTATION Name: MATT STARR Cam Room #: 219-P [facility].#: [id number] Admission: 04/18/18 Attend Phys: Cal Scott MD Discharge: 04/27/18 Date of : [birth year] Report #: [id number] VITAL SIGNS: At this time include temperature of 36.9, pulse rate 86, respiratory rate 18, blood pressure 105/59. GENERAL: This is a chronically ill-appearing female patient who appears to be in minimal distress. HEENT: Head is normocephalic. Nose and throat are clear. NECK: Supple. LUNGS: Diminished. HEART: Regular without obvious murmur. ABDOMEN: Soft and nontender. EXTREMITIES: Demonstrate easily palpable distal pulses. She has chronic erythema and stasis dermatitis to both lower extremities. She has a circular ulceration to the left posterior calf. It is relatively clean and granulating and remains superficial, does not appear to be overtly infected. NEUROLOGIC: She is alert. She does move all 4 extremities. LABORATORY DATA: Includes white blood cell count of 12.5 with hemoglobin of 8.9. Sodium 140, potassium 4.1, chloride 104, CO2 30, BUN 29, creatinine 1.5. Arterial blood gas pH 7.39, pCO2 of 40, pO2 of 65, saturation 88.9. CLINICAL IMPRESSION: 1. Ulceration to the right posterior calf. 2. Bilateral lower extremity lymphedema. 3. Venous stasis dermatitis. 4. History of cerebrovascular accident. 5. Chronic obstructive pulmonary disease and sleep apnea. RECOMMENDATIONS: At this point in time, we will recommend topical silver alginate and multilayer compression to both lower extremities. Elevation of the lower extremities would be appropriate. Her gluteal sacral region is clear. She will need turning and repositioning as she has decreased mobility. She will need aggressive nutritional support to maximize wound healing. I discussed her care plan with nursing staff and Dr. Scott. I appreciate being asked to see her in consultation. <ELECTRONICALLY SIGNED> By: Ryan Celaya MD 04/29/18 [id number] Ryan Celaya MD /nt
--- NOTE | ~2018-04-18 | D ---
[facility] [place] [address] DISCHARGE SUMMARY Name: MATT STARR Room #: 219-P [facility] IN ..#: [id number] Admission: 04/18/18 Attend Phys: Cal Scott MD Discharge: 04/27/18 Date of : [birth year] Report #: [id number] THIS REPORT FOR: //name// CC: Cal Scott DATE OF SERVICE: 04/27/2018 SUMMARY OF HISTORY AND PHYSICAL: Please see detailed history and physical. The patient presented to the office with confusion and had not been wearing her oxygen because in her confused state of mind she explained to her family that "Dr. Scott told me I didn't need it any longer," which was of course not true. She also had tense ascites, which was completely new, and severe pain in her legs because of edema that was more advanced than her usual edema, and also made worse by her tense ascites. She was a direct admit from my office to the hospital and she required ambulance transport. She required full inpatient admission in order to determine the diagnosis and cause of the tense ascites as well as treat the tense ascites in addition to addressing her pulmonary status. SUMMARY OF HOSPITAL COURSE: One of the first procedures performed in the hospital was a CT scan of her chest, abdomen and pelvis. It revealed new bibasilar pneumonias that required inpatient treatment. It also revealed a misshapen smaller than normal liver as well as tense ascites with the bulk of the fluid being interspersed between the bowel loops. She underwent a therapeutic and diagnostic paracentesis. Three liters of fluid was removed and that made her breathing better, but the fluid rapidly reaccumulated. With removing the fluid and gentle diuresis, her creatinine began to steadily climb. She had a progressive hospital course with reaccumulation and actually worsening of her ascites. She was followed by multiple consultants. All of her cultures were negative. On 04/23/2018, CT of her abdomen and pelvis was repeated, this time a detailed enough image of the liver showed it again to be shrunken and nodular in contour suggestive of cirrhosis. There also appeared to be omental thickening that was characteristic of metastatic disease. Mild fluid filled and gaseous distention of the small bowel without a focal transition point that would suggest a mechanical obstruction was seen, and suggested an ileus. After the CT scan a therapeutic and diagnostic paracentesis was again repeated. Five liters of fluid was removed. After removal of the fluid, multiple peritoneal implants could be felt as abdominal nodules through her thin abdominal wall. Dr. Bruno of the GI Service noted that the ascitic fluid albumin and serum [address] [address] DISCHARGE SUMMARY Name: MATTYMATT L Room #: 219-P [facility] IN ..#: [id number] Admission: 04/18/18 Attend Phys: Cal Scott MD Discharge: 04/27/18 Date of : [birth year] Report #: [id number] albumin gradient was not that expected of cirrhosis of the liver. With this finding, the diagnosis of peritoneal carcinomatosis was made. The second CT scan suggested an ovarian source from large irregularly shaped mass-like soft tissue in the adnexal regions bilaterally. With these findings, the diagnosis of ovarian cancer causing peritoneal carcinomatosis was made. These findings were shared with the patient, and she was informed that there was no truly effective treatment. She did not want further treatment at this point anyway and had been a "do not resuscitate" status for several years. She expressed understanding and wished comfort care. At this time, she was completely comfortable if lying in bed on her back without being disturbed. Any rolling from [id number] to relieve her pressure area over the coccyx or reduce pressure on her legs caused exquisite pain. For comfort care measures the palliative care order set was initiated. Intravenous morphine infusion made her comfortable at about the 7 mg per hour dose. She slowly became less responsive. She about 1400 hours on 04/27/2018, surrounded by her close family. DISCHARGE DIAGNOSES: 1. 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 2. Bilateral pneumonias. 3. Pressure ulcer of the coccyx that was mild, and minimal pressure ulcers of the lower extremities. 4. Edema of the lower legs was controlled with pressure dressings. 5. Prominent edema of both thighs. 6. Chronic obstructive pulmonary disease. 7. Severe obstructive sleep apnea. 8. Chronic kidney disease stage 3. 9. Acute kidney injury from her disease process and diuresis. 10. Toxic encephalopathy was present at the time of admission. 11. Anemia. 12. Severe malnutrition was present on admission. 13. Severe nonspecific leg and trunk pain. 14. There was an episode of aspiration pneumonia. 15. She did respond to overnight use of BiPAP to treat the episode of aspiration pneumonia caused by vomiting that was caused by the tense ascites. 16. Mild diet-controlled diabetes. 17. Other medical problems as listed in the history and physical. CONSULTATIONS OBTAINED: Pulmonary consultation, GI consultation, Wound Care [facility] [address] [place] [address] DISCHARGE SUMMARY Name: MATT STARR Room #: 219-P [facility]#: [id number] Admission: 04/18/18 Attend Phys: Cal Scott MD Discharge: 04/27/18 Date of : [birth year] Report #: [id number] consultation, Infectious Disease consultation, Nephrology consultation, Rehabilitation Medicine consultation. By: [id number] Cal Scott MD /nt
[~2018-04-18 13:30] MED LIST changes: +AUGMENTIN 500-1 EACH PO; +DUONEB 2.5-0.5 M3 ML INH; +ESTRACE1 TUBE VAG; +HYDROCODONE-AP1 EAC6 PO; +TRAMADOL 50 MG50 MG PO; +TRIAMCINOLONE 080 G3 TOP; +UNASYN 1.5 GM1.5 GM IV; +VITAMIN B-121000 MCG PO
[2018-04-18 14:18] VITALS: BP 130/64
[2018-04-18 16:35] LABS: ABSOLUTE NEUTROPHILS 11.6 thou/uL (1.4-8.2); BASOPHILS 0.8 % (0.0-2.0); EOSINOPHILS 0.5 % (0.0-3.0); HEMATOCRIT 29.4 % (37.0-47.0); HEMOGLOBIN 9.3 gm/dL (12.0-15.0); LYMPHOCYTES 6.3 % (24.0-44.0); MCH 22.8 pg (26.0-34.0); MCHC 31.5 g/dL (28.0-37.0); MCV 72.4 fL (80.0-100.0); MONOCYTES 5.8 % (1.0-8.0); PLATELET COUNT 623 thou/uL (150-400); POLYS 86.6 % (36.0-66.0); RBC 4.07 mil/uL (4.20-5.00); RDW 18.6 % (10.5-14.5); WBC 13.4 thou/uL (4.0-11.0)
[2018-04-18 16:49] LABS: ALBUMIN 2.2 g/dL (3.4-5.0); CALCIUM 9.5 mg/dL (8.5-10.1); CREATININE 1.6 mg/dL (0.6-1.0); POTASSIUM 4.2 mmol/L (3.5-5.1); TOTAL BILIRUBIN 0.4 mg/dL (<0.1-1.0); TOTAL PROTEIN 7.3 g/dL (6.4-8.2)
[2018-04-18 17:18] LABS: ANISOCYTOSIS 2+
[2018-04-18 17:19] LABS: FOLIC ACID 11.8 ng/mL (8.6-58.9); HYPOCHROMASIA 1+; MICROCYTES 1+; OVALOCYTES OCCASIONAL
[2018-04-18 17:33] LABS: BE(vivo) -0.6 mmol/L (-2 to +3); HCO3 24.1 mmol/L (22.0-26.0); PO2 65.5 mmHg (80.0-100.0); pH 7.398 (7.360-7.450); sO2 92.9 % (92.0-98.0)
[2018-04-18 19:45] LABS: URINE BILIRUBIN NEGATIVE (Negative); URINE BLOOD 2+ (Negative); URINE CLARITY CLOUDY; URINE COLOR YELLOW; URINE GLUCOSE-RANDOM* NEGATIVE (Negative); URINE KETONES TRACE (Negative); URINE NITRITE-REFLEX NEGATIVE (Negative); URINE PROTEIN (DIPSTICK) TRACE (Negative); URINE SPECIFIC GRAVITY 1.015 (1.005-1.035); URINE UROBILINOGEN 0.2 E.U./dl (0.2-1.0)
[2018-04-18 19:46] LABS: URINE LEUKOCYTES-REFLEX 3+ (Negative)
[2018-04-18 19:55] LABS: CASTS None Seen /LPF (None Seen); MUCUS 0-3 Light strn/LPF (None Seen); SQUAMOUS 0-3 Few /LPF (0-3); URINE WBC-REFLEX >25 Many /HPF (0-5)
[2018-04-18 19:56] LABS: CRYSTALS None Seen /LPF (None Seen); URINE RBC 0-2 Rare /HPF (0-2)
[2018-04-18 20:19] VITALS: BP 125/72
[2018-04-18 23:50] VITALS: BP 120/61
[2018-04-19 02:06] LABS: GLYCOHEMOGLOBIN (HGB A1C) 5.7 % (4.8-5.6)
[2018-04-19 04:30] VITALS: BP 141/52
[2018-04-19 06:54] LABS: HEMATOCRIT 28.5 % (37.0-47.0); HEMOGLOBIN 8.9 gm/dL (12.0-15.0); MCH 22.5 pg (26.0-34.0); MCHC 31.1 g/dL (28.0-37.0); MCV 72.5 fL (80.0-100.0); RBC 3.94 mil/uL (4.20-5.00); RDW 18.7 % (10.5-14.5); WBC 12.5 thou/uL (4.0-11.0)
[2018-04-19 07:04] LABS: CALCIUM 9.6 mg/dL (8.5-10.1); CREATININE 1.5 mg/dL (0.6-1.0); POTASSIUM 4.1 mmol/L (3.5-5.1)
[2018-04-19 08:21] VITALS: BP 105/59
[2018-04-19 11:03] VITALS: BP 106/58
[2018-04-19 13:33] LABS: % SATURATION 8 % (20-39); IRON 12 ug/dL (50-170); TIBC 152 ug/dL (250-450)
[2018-04-19 17:15] VITALS: BP 125/67
[2018-04-19 20:04] VITALS: BP 112/53
[2018-04-20 01:09] LABS: IgG 1033 mg/dL (700-1600)
[2018-04-20 03:06] LABS: HAV IgM AB (ANTI-HAV IgM) Negative (Negative); HEPATITIS B SURFACE AG Negative (Negative); HEPATITIS C VIRUS AB <0.1 (0.0-0.9)
[2018-04-20 04:23] VITALS: BP 126/62
[2018-04-20 06:05] LABS: HEMATOCRIT 29.9 % (37.0-47.0); HEMOGLOBIN 9.2 gm/dL (12.0-15.0); MCH 22.6 pg (26.0-34.0); MCHC 30.6 g/dL (28.0-37.0); MCV 73.8 fL (80.0-100.0); RBC 4.05 mil/uL (4.20-5.00); RDW 18.3 % (10.5-14.5); WBC 13.8 thou/uL (4.0-11.0)
[2018-04-20 06:07] LABS: CALCIUM 9.5 mg/dL (8.5-10.1); CREATININE 1.6 mg/dL (0.6-1.0); POTASSIUM 4.2 mmol/L (3.5-5.1)
[2018-04-20 08:20] VITALS: BP 116/67
[2018-04-20 08:28] LABS: APTT 33.7 Seconds (24.5-32.8); INR 1.1; PROTIME 10.7 Seconds (9.3-11.4)
[2018-04-20 12:02] VITALS: BP 120/72
[2018-04-20 12:15] LABS: SOURCE ABDOMINAL
[2018-04-20 12:16] LABS: CLARITY SLIGHTLY CLOUDY; COLOR YELLOW; SOURCE ABDOMINAL; TOTAL VOLUME 55 mL
[2018-04-20 12:20] LABS: BF NUCLEATED CELLS 357; BF RBC 527
[2018-04-20 12:59] LABS: BF MACROPHAGE 38; BF NEUTROPHILS 38
[2018-04-20 16:35] VITALS: BP 100/58
[2018-04-20 20:15] VITALS: BP 111/60
[2018-04-21] VITALS (7 sets, daily range): BP systolic 98–132; BP diastolic 58–80
[2018-04-21 00:09] LABS: BODY FLUID ALBUMIN 2.1 g/dL (()); BODY FLUID AMYLASE 23 U/L (()); BODY FLUID GLUCOSE 112 mg/dL (()); BODY FLUID LDH 126 IU/L (()); BODY FLUID PROTEIN 4.2 g/dL (())
[2018-04-21 06:30] LABS: HEMATOCRIT 27.9 % (37.0-47.0); HEMOGLOBIN 8.8 gm/dL (12.0-15.0); MCH 22.8 pg (26.0-34.0); MCHC 31.5 g/dL (28.0-37.0); MCV 72.5 fL (80.0-100.0); RBC 3.85 mil/uL (4.20-5.00)
[2018-04-21 06:39] LABS: CREATININE 1.7 mg/dL (0.6-1.0); POTASSIUM 3.9 mmol/L (3.5-5.1)
[2018-04-21 19:40] LABS: BE(vivo) 2.4 mmol/L (-2 to +3); HCO3 27.2 mmol/L (22.0-26.0); PO2 77.5 mmHg (80.0-100.0); pH 7.419 (7.360-7.450); sO2 95.6 % (92.0-98.0)
[2018-04-21 19:53] LABS: HEMATOCRIT 33.3 % (37.0-47.0); HEMOGLOBIN 10.2 gm/dL (12.0-15.0); MCH 22.7 pg (26.0-34.0); MCHC 30.8 g/dL (28.0-37.0); MCV 73.8 fL (80.0-100.0); PLATELET COUNT 556 thou/uL (150-400); RBC 4.51 mil/uL (4.20-5.00); RDW 18.5 % (10.5-14.5); WBC 28.2 thou/uL (4.0-11.0)
[2018-04-21 20:14] LABS: ABSOLUTE NEUTROPHILS 26.8 thou/uL (1.4-8.2)
[2018-04-21 20:15] LABS: ANISOCYTOSIS 2+; HYPOCHROMASIA 1+
[2018-04-21 20:16] LABS: MICROCYTES 1+; POLYCHROMASIA OCCASIONAL
[2018-04-22 00:47] LABS: URINE BILIRUBIN NEGATIVE (Negative); URINE BLOOD NEGATIVE (Negative); URINE CLARITY CLEAR; URINE COLOR YELLOW; URINE GLUCOSE-RANDOM* NEGATIVE (Negative); URINE KETONES NEGATIVE (Negative); URINE NITRITE-REFLEX NEGATIVE (Negative); URINE PROTEIN (DIPSTICK) NEGATIVE (Negative); URINE SPECIFIC GRAVITY 1.025 (1.005-1.035); URINE UROBILINOGEN 0.2 E.U./dl (0.2-1.0)
[2018-04-22 00:49] LABS: URINE LEUKOCYTES-REFLEX 1+ (Negative)
[2018-04-22 03:04] LABS: HYALINE CASTS 0-3 Few /LPF (None Seen); MUCUS 4-6 Moderate strn/LPF (None Seen); SQUAMOUS >10 Many /LPF (0-3)
[2018-04-22 03:05] LABS: BACTERIA-REFLEX >30 Many /HPF (None Seen); CRYSTALS None Seen /LPF (None Seen); URINE RBC 0-2 Rare /HPF (0-2); WBC CLUMPS Occasional (None Seen)
[2018-04-22 03:38] VITALS: BP 105/53
[2018-04-22 04:06] LABS: HEMATOCRIT 26.9 % (37.0-47.0); HEMOGLOBIN 8.4 gm/dL (12.0-15.0); MCH 22.4 pg (26.0-34.0); MCHC 31.1 g/dL (28.0-37.0); RBC 3.74 mil/uL (4.20-5.00); RDW 18.7 % (10.5-14.5)
[2018-04-22 04:09] LABS: ALBUMIN 1.7 g/dL (3.4-5.0); ANION GAP 9 mmol/L (7-16); BUN 31 mg/dL (7-18); CALCIUM 9.1 mg/dL (8.5-10.1); CHLORIDE 105 mmol/L (98-107); CO2 29 mmol/L (21-32); CREATININE 1.9 mg/dL (0.6-1.0); GLUCOSE 134 mg/dL (74-106); POTASSIUM 4.7 mmol/L (3.5-5.1); SGOT 15 U/L (15-37); SODIUM 143 mmol/L (136-145); TOTAL BILIRUBIN 0.5 mg/dL (<0.1-1.0); TOTAL PROTEIN 6.3 g/dL (6.4-8.2)
[2018-04-22 04:57] LABS: SGPT < 6 U/L (30-65)
[2018-04-22 08:05] VITALS: BP 110/58
[2018-04-22 10:51] LABS: BE(vivo) 3.2 mmol/L (-2 to +3); PCO2 51.4 mmHg (35.0-45.0); PO2 76.9 mmHg (80.0-100.0); sO2 94.8 % (92.0-98.0)
[2018-04-22 11:04] VITALS: BP 110/60
[2018-04-22 12:34] LABS: URINE CREATININE-RANDOM* 101.8 mg/dL
[2018-04-22 13:07] LABS: CERULOPLASMIN 40.1 mg/dL (19.0-39.0)
[2018-04-22 15:01] VITALS: BP 118/65
[2018-04-22 15:10] LABS: ANA INTERPRETATION Negative (Negative)
[2018-04-22 20:15] VITALS: BP 111/41
[2018-04-23 02:36] LABS: HEMATOCRIT 25.1 % (37.0-47.0); HEMOGLOBIN 7.8 gm/dL (12.0-15.0); MCH 22.6 pg (26.0-34.0); MCV 72.8 fL (80.0-100.0); RBC 3.44 mil/uL (4.20-5.00); RDW 18.2 % (10.5-14.5); WBC 33.4 thou/uL (4.0-11.0)
[2018-04-23 02:43] LABS: INR 1.1
[2018-04-23 02:47] LABS: ALBUMIN 1.5 g/dL (3.4-5.0); CALCIUM 9.2 mg/dL (8.5-10.1); CREATININE 1.9 mg/dL (0.6-1.0); PHOSPHORUS 4.2 mg/dL (2.5-4.9); POTASSIUM 4.5 mmol/L (3.5-5.1); TOTAL BILIRUBIN 0.4 mg/dL (<0.1-1.0); TOTAL PROTEIN 6.1 g/dL (6.4-8.2)
[2018-04-23 04:06] VITALS: BP 117/51
[2018-04-23 07:34] VITALS: BP 123/57
[2018-04-23 10:57] LABS: COLOR YELLOW; SOURCE ABDOMINAL FLUID; TOTAL VOLUME 60 mL
[2018-04-23 10:58] LABS: CLARITY CLEAR
[2018-04-23 11:06] LABS: BF NUCLEATED CELLS 379; BF RBC 812
[2018-04-23 11:38] VITALS: BP 124/63
[2018-04-23 14:45] LABS: BF MACROPHAGE 50; BF NEUTROPHILS 38
[2018-04-23 15:31] VITALS: BP 117/51
[2018-04-23 20:05] VITALS: BP 104/47
[2018-04-24 04:24] LABS: ALBUMIN 1.6 g/dL (3.4-5.0); CALCIUM 9.5 mg/dL (8.5-10.1); CREATININE 1.8 mg/dL (0.6-1.0); PHOSPHORUS 4.7 mg/dL (2.5-4.9); POTASSIUM 4.3 mmol/L (3.5-5.1)
[2018-04-24 07:15] VITALS: BP 117/47
[2018-04-24 19:55] VITALS: BP 142/58
[2018-04-25 04:50] VITALS: BP 143/72
[2018-04-25 08:15] VITALS: BP 115/50
[2018-04-25 08:42] LABS: SOURCE ABDOMINAL
[2018-04-25 10:05] LABS: BODY FLUID ALBUMIN 1.9 g/dL (()); BODY FLUID AMYLASE 20 U/L (()); BODY FLUID GLUCOSE 97 mg/dL (()); BODY FLUID LDH 168 IU/L (()); BODY FLUID PROTEIN 3.7 g/dL (())
[2018-04-25 19:52] VITALS: BP 127/42
[2018-04-26 03:13] VITALS: BP 118/49
[2018-04-26 08:05] VITALS: BP 113/53
[2018-04-27 09:10] VITALS: BP 85/40
== END 2018-04-27 14:00 | DRG 177 ==
LOC: 2N 13:30
PROVIDERS: Hospitalist; Internal Medicine; Internal Medicine Pulmonary Disease; Nurse Practitioner
PROC: 0W9G3ZZ Drainage of Peritoneal Cavity, Percutaneous Approach (ICD-10-PCS; principal; 2018-04-20)
PROC: 5A09457 Assistance with Respiratory Ventilation, 24-96 Consecutive Hours, Continuous Positive Airway Pressure (ICD-10-PCS; 2018-04-21)
PROC: 0W9G3ZZ Drainage of Peritoneal Cavity, Percutaneous Approach (ICD-10-PCS; 2018-04-23)
DX: J69.0 Pneumonitis due to inhalation of food and vomit (principal); G92 Toxic encephalopathy; E43 Unspecified severe protein-calorie malnutrition; N17.9 Acute kidney failure, unspecified; R18.8 Other ascites; L97.219 Non-pressure chronic ulcer of right calf with unspecified severity; C56.9 Malignant neoplasm of unspecified ovary; C78.6 Secondary malignant neoplasm of retroperitoneum and peritoneum; N39.0 Urinary tract infection, site not specified; J96.10 Chronic respiratory failure, unspecified whether with hypoxia or hypercapnia; M10.9 Gout, unspecified; F32.9 Major depressive disorder, single episode, unspecified; K21.9 Gastro-esophageal reflux disease without esophagitis; E11.22 Type 2 diabetes mellitus with diabetic chronic kidney disease; J44.9 Chronic obstructive pulmonary disease, unspecified; I25.10 Atherosclerotic heart disease of native coronary artery without angina pectoris; I87.2 Venous insufficiency (chronic) (peripheral); G47.33 Obstructive sleep apnea (adult) (pediatric); E11.40 Type 2 diabetes mellitus with diabetic neuropathy, unspecified; K74.60 Unspecified cirrhosis of liver; G40.909 Epilepsy, unspecified, not intractable, without status epilepticus; Z96.641 Presence of right artificial hip joint; D63.8 Anemia in other chronic diseases classified elsewhere; L89.150 Pressure ulcer of sacral region, unstageable; L89.890 Pressure ulcer of other site, unstageable; N18.3 Chronic kidney disease, stage 3 (moderate); D50.9 Iron deficiency anemia, unspecified; D47.3 Essential (hemorrhagic) thrombocythemia; K44.9 Diaphragmatic hernia without obstruction or gangrene; K22.2 Esophageal obstruction; I12.9 Hypertensive chronic kidney disease with stage 1 through stage 4 chronic kidney disease, or unspecified chronic kidney disease; E11.65 Type 2 diabetes mellitus with hyperglycemia; Z99.81 Dependence on supplemental oxygen; Z68.27 Body mass index [BMI] 27.0-27.9, adult; Z86.73 Personal history of transient ischemic attack (TIA), and cerebral infarction without residual deficits; Z87.81 Personal history of (healed) traumatic fracture; Z91.81 History of falling; Z79.82 Long term (current) use of aspirin; Z79.899 Other long term (current) drug therapy; Z91.018 Allergy to other foods
CPT/HCPCS: 10797